=== PATIENT | male | born 1935 | race Caucasian/White ===

== ENCOUNTER → 2017-11-03 | Outpatient (CLI) | payer MEDICARE, BC | END | disposition home or self-care (01) | LOC: LAB 15:02 | PROVIDERS: ATTEND Internal Medicine | DX: D64.9 Anemia, unspecified (principal) | CPT/HCPCS: 82270 ==

== ENCOUNTER → 2018-10-14 | Outpatient (CLI) | payer MEDICARE, BC ==
[2018-10-14 12:38] LABS: Basophils # (auto) 0 uL; Basophils % (auto) 0.8 % (0.0-2.0); Eosinophils # (auto) 0 uL; Eosinophils % (auto) 0.8 % (0.0-7.0); Hematocrit 41.4 % (41.0-53.0); Hemoglobin 13.5 g/dL (13.5-17.5); Lymphocytes # (auto) 1.2 uL; Lymphocytes % (auto) 19.7 % (10.0-50.0); Mean Corpuscular Hemoglobin 32.6 pg (28.0-32.0); Mean Corpuscular Hgb Conc. 32.6 g/dL (32.0-36.0); Monocytes # (auto) 0.5 uL; Monocytes % (auto) 8.3 % (0.0-12.0); Neutrophils # (auto) 4.3 uL; Neutrophils % (auto) 70.4 % (37.0-80.0); Nucleated Red Blood Cells % 0.2 %; Platelet Count (auto) 226 10^3/uL (140-450); Red Blood Cells 4.14 10^6/uL (4.5-5.90); Red Cell Distribution Width 16.8 % (11.8-14.3); White Blood Cell 6.1 10^3/uL (4.4-10.8)
[2018-10-14 14:02] LABS: Albumin 3.8 g/dL (3.4-5.0); Calcium 9.3 mg/dL (8.5-10.1); Potassium 4.7 mmol/L (3.5-5.1)
[2018-10-14 14:05] LABS: Bilirubin, Total 0.7 mg/dL (0.2-1.0); Total Protein 7.1 g/dL (6.4-8.2)
== END | disposition home or self-care (01) ==
LOC: LAB 12:11
PROVIDERS: ATTEND Internal Medicine
DX: I10 Essential (primary) hypertension (principal); R79.89 Other specified abnormal findings of blood chemistry
CPT/HCPCS: 36415; 80053; 82607; 83540; 83615; 85025

== ENCOUNTER → 2019-09-02 | Outpatient (CLI) | payer MEDICARE, BC ==
[~2019-09-02] MED LIST: ATOR40TA52 PO; BENA20TA14 PO; DILT-29 PO; TAMS0.4C36 PO; WARF10TA PO
[2019-09-02 13:21] LABS: Basophils # (auto) 0.1 10 ^3/uL (0-0.2); Basophils % (auto) 0.9 % (0.0-2.0); Eosinophils # (auto) 0.1 10 ^3/uL (0-0.8); Eosinophils % (auto) 0.8 % (0.0-7.0); Hematocrit 36.8 % (41.0-53.0); Hemoglobin 12.5 g/dL (13.5-17.5); Lymphocytes # (auto) 1.3 10 ^3/uL (0.4-5.4); Mean Corpuscular Hemoglobin 33.6 pg (28.0-32.0); Mean Corpuscular Hgb Conc. 33.8 g/dL (32.0-36.0); Mean Corpuscular Volume 99.1 fL (80.0-100.0); Monocytes # (auto) 0.4 10 ^3/uL (0-1.3); Monocytes % (auto) 5.1 % (0.0-12.0); Neutrophils # (auto) 5.4 10 ^3/uL (1.6-8.6); Neutrophils % (auto) 75.2 % (37.0-80.0); Nucleated Red Blood Cells % 0.2 %; Platelet Count (auto) 221 10^3/uL (140-450); Red Blood Cells 3.71 10^6/uL (4.5-5.90); Red Cell Distribution Width 17.3 % (11.8-14.3); White Blood Cell 7.2 10^3/uL (4.4-10.8)
[2019-09-02 13:25] LABS: Urine Bacteria NONE SEEN /hpf (None Seen); Urine Blood Negative /uL (Negative); Urine Hyaline Cast FEW /lpf (0 - 2); Urine Mucus FEW (None Seen); Urine Specific Gravity 1.015 (1.001-1.035); Urine WBC 1 /hpf (0 - 3)
[2019-09-02 13:38] LABS: INR 3.31 (0.9-1.15)
[2019-09-02 14:06] LABS: Free T4 (Free Thyroxine) 1.42 ng/dL (0.89-1.76)
[2019-09-02 14:20] LABS: Albumin 3.6 g/dL (3.4-5.0); Calcium 8.9 mg/dL (8.5-10.1); Potassium 4.8 mmol/L (3.5-5.1)
[2019-09-02 14:26] LABS: BUN/Creatinine Ratio 20.7; Bilirubin, Total 0.7 mg/dL (0.2-1.0); CRP High Sensitivity 0.12 mg/dL (< 0.3); Total Protein 6.9 g/dL (6.4-8.2)
== END | disposition home or self-care (01) ==
LOC: LAB 12:52
PROVIDERS: ATTEND Internal Medicine
DX: E11.9 Type 2 diabetes mellitus without complications (principal); I48.91 Unspecified atrial fibrillation; I10 Essential (primary) hypertension; D64.9 Anemia, unspecified; R53.83 Other fatigue
CPT/HCPCS: 36415; 80053; 81001; 82550; 82607; 83540; 83615; 83735; 84439; 84443; 85025; 85610; 85652; 86141

== ENCOUNTER 2019-10-30 12:52 | Inpatient (IN) | payer MEDICARE, BC ==
[~2019-10-30] VITALS: Ht 190.5 cm; Wt 119.0 kg
[2019-10-30 13:28] LABS: Urine Bacteria NONE SEEN /hpf (None Seen); Urine Blood 3+ /uL (Negative); Urine Mucus FEW (None Seen); Urine Specific Gravity 1.018 (1.001-1.035); Urine WBC 21 /hpf (0 - 3)
[2019-10-30 14:05] LABS: Basophils # (auto) 0 10 ^3/uL (0-0.2); Basophils % (auto) 0.7 % (0.0-2.0); Eosinophils # (auto) 0 10 ^3/uL (0-0.8); Eosinophils % (auto) 0.7 % (0.0-7.0); Hematocrit 34.9 % (41.0-53.0); Hemoglobin 11.5 g/dL (13.5-17.5); Lymphocytes # (auto) 1.1 10 ^3/uL (0.4-5.4); Lymphocytes % (auto) 22.4 % (10.0-50.0); Mean Corpuscular Hgb Conc. 32.9 g/dL (32.0-36.0); Mean Corpuscular Volume 100.3 fL (80.0-100.0); Monocytes # (auto) 0.3 10 ^3/uL (0-1.3); Monocytes % (auto) 6.5 % (0.0-12.0); Neutrophils # (auto) 3.3 10 ^3/uL (1.6-8.6); Neutrophils % (auto) 69.7 % (37.0-80.0); Nucleated Red Blood Cells % 0.2 %; Platelet Count (auto) 172 10^3/uL (140-450); Red Blood Cells 3.48 10^6/uL (4.5-5.90); Red Cell Distribution Width 17.3 % (11.8-14.3); White Blood Cell 4.8 10^3/uL (4.4-10.8)
[2019-10-30 14:18] LABS: Calcium 8.4 mg/dL (8.5-10.1); Chloride 110 mmol/L (98-107); Potassium 3.9 mmol/L (3.5-5.1); Sodium 138 mmol/L (136-145)
[2019-10-30 14:26] LABS: Alanine Aminotransferase 17 U/L (16-61); Albumin 3.3 g/dL (3.4-5.0); Alkaline Phosphatase 84 U/L (45-117); Anion Gap 5 (5-15); Aspartate Aminotransferase 15 U/L (15-37); BUN/Creatinine Ratio 19.7; Bilirubin, Total 0.6 mg/dL (0.2-1.0); Blood Urea Nitrogen 14 mg/dL (7-18); Carbon Dioxide 23 mmol/L (21-32); GFR African American 136 mL/min; GFR Non-African American 112 mL/min; Glucose 94 mg/dL (74-106); Total Protein 6.3 g/dL (6.4-8.2)
[2019-10-30 14:28] LABS: INR 4.34 (0.9-1.15)
[2019-10-30] MEDS ORDERED: phytonadione 10 MG in SODIUM CHL 0.9% 50 ML IV ONE (14:45)
[2019-10-30] MEDS ORDERED: traMADol HCL 50 MG TAB PO PRN (15:00)
[2019-10-30] MEDS ORDERED: NITROGLYCERIN 0.4 MG SL TAB SL PRN (15:00)
[2019-10-30] MEDS ORDERED: MORPHINE SULF INJ 2 MG/ML SYRINGE 1ML IV PRN ×2 (15:00)
[2019-10-30] MEDS ORDERED: cefTRIAXone 1GM/50ML D5W 50 ML IV ONE (15:00)
[2019-10-30] MEDS ORDERED: ONDANSETRON HCL 4 MG/2 ML VIAL IV PRN (15:00)
[2019-10-30] MEDS ORDERED: ACETAMINOPHEN 500 MG TAB PO PRN (15:00)
[2019-10-30] MEDS: SODIUM CHLORIDE 0.9% 1,000 ML IV SCH ×2 (15:49→21:23)
[2019-10-30 18:09] VITALS: BP 144/57
[2019-10-30] MEDS ORDERED: WARF10TA PO (18:34)
[2019-10-30] MEDS ORDERED: DILT1CAP77 PO (18:34)
[2019-10-30] MEDS ORDERED: BENA20TA14 PO (18:34)
[2019-10-30] MEDS ORDERED: TAMS0.4C36 PO (18:34)
[2019-10-30] MEDS ORDERED: ATOR40TA52 PO (18:34)
[2019-10-30 20:12] LABS: Hematocrit 35.2 % (41.0-53.0); Hemoglobin 11.5 g/dL (13.5-17.5)
[2019-10-30 21:58] VITALS: BP 143/70
[2019-10-30] MEDS ORDERED: FAMOTIDINE 20 MG TAB PO SCH (22:00)
[2019-10-31 02:17] LABS: Hematocrit 31.9 % (41.0-53.0); Hemoglobin 10.6 g/dL (13.5-17.5)
[2019-10-31 04:51] VITALS: BP 122/51
[2019-10-31 05:53] LABS: Hematocrit 32.5 % (41.0-53.0); Hemoglobin 10.8 g/dL (13.5-17.5)
[2019-10-31 06:05] LABS: INR 1.52 (0.9-1.15); Partial Thromboplastin Time 31.4 sec (23.64-32.05)
[2019-10-31 08:00] VITALS: BP 149/78
[2019-10-31 09:00] VITALS: BP 149/78
[2019-10-31] MEDS ORDERED: cefTRIAXone 1GM/50ML D5W 50 ML IV SCH (09:00)
[2019-10-31] MEDS ORDERED: MANNITOL FTV 25% 12.5 GM/50 ML 50 ML IV ONE ×2 (09:30)
[2019-10-31 13:46] VITALS: BP 149/78
== END 2019-10-31 14:35 | disposition home or self-care (01) | DRG 815 ==
LOC: ER 12:52 → TELE 12:53 → TELE-CENTR 17:34
PROVIDERS: ADMIT Internal Medicine; ATTEND Internal Medicine
DX: D68.59 Other primary thrombophilia (principal); N20.2 Calculus of kidney with calculus of ureter; D68.9 Coagulation defect, unspecified; I11.9 Hypertensive heart disease without heart failure; I25.10 Atherosclerotic heart disease of native coronary artery without angina pectoris; I48.91 Unspecified atrial fibrillation; Z79.01 Long term (current) use of anticoagulants; Z82.49 Family history of ischemic heart disease and other diseases of the circulatory system; Z85.46 Personal history of malignant neoplasm of prostate; Z87.442 Personal history of urinary calculi; Z95.0 Presence of cardiac pacemaker; Z95.2 Presence of prosthetic heart valve; Z88.6 Allergy status to analgesic agent
CPT/HCPCS: 36415; 71045; 74176; 80053; 81001; 83735; 84484; 85014; 85018; 85025; 85610; 85730; 87081; 87086; 93005; 96365; 96368; G0378; J0696; J3430

== ENCOUNTER → 2019-12-30 | Outpatient (CLI) | payer MEDICARE, BC | END | disposition home or self-care (01) | LOC: XYW 07:42 | PROVIDERS: ATTEND Internal Medicine | DX: I08.3 Combined rheumatic disorders of mitral, aortic and tricuspid valves (principal); I48.91 Unspecified atrial fibrillation | CPT/HCPCS: 93306 ==

== ENCOUNTER → 2020-02-11 | Outpatient (CLI) | payer MEDICARE, BC ==
[2020-02-11 08:43] LABS: Basophils # (auto) 0 10 ^3/uL (0-0.2); Basophils % (auto) 0.6 % (0.0-2.0); Eosinophils # (auto) 0 10 ^3/uL (0-0.8); Hematocrit 37.1 % (41.0-53.0); Hemoglobin 12.5 g/dL (13.5-17.5); Lymphocytes # (auto) 1.2 10 ^3/uL (0.4-5.4); Lymphocytes % (auto) 27.9 % (10.0-50.0); Mean Corpuscular Hemoglobin 33.9 pg (28.0-32.0); Mean Corpuscular Hgb Conc. 33.7 g/dL (32.0-36.0); Mean Corpuscular Volume 100.6 fL (80.0-100.0); Monocytes # (auto) 0.2 10 ^3/uL (0-1.3); Monocytes % (auto) 5.6 % (0.0-12.0); Neutrophils # (auto) 2.8 10 ^3/uL (1.6-8.6); Neutrophils % (auto) 64.9 % (37.0-80.0); Nucleated Red Blood Cells % 0.2 %; Platelet Count (auto) 200 10^3/uL (140-450); Red Blood Cells 3.69 10^6/uL (4.5-5.90); Red Cell Distribution Width 17.1 % (11.8-14.3); White Blood Cell 4.3 10^3/uL (4.4-10.8)
[2020-02-11 08:48] LABS: Urine Bacteria NONE SEEN /hpf (None Seen); Urine Blood Negative /uL (Negative); Urine Specific Gravity 1.011 (1.001-1.035); Urine WBC 1 /hpf (0 - 3)
[2020-02-11 09:48] LABS: Potassium 4.2 mmol/L (3.5-5.1)
[2020-02-11 09:59] LABS: Albumin 3.4 g/dL (3.4-5.0); BUN/Creatinine Ratio 14.7; Bilirubin, Total 0.7 mg/dL (0.2-1.0); Calcium 8.9 mg/dL (8.5-10.1); Free T4 (Free Thyroxine) 0.98 ng/dL (0.89-1.76); Total Protein 6.2 g/dL (6.4-8.2)
== END | disposition home or self-care (01) ==
LOC: LAB 08:15
PROVIDERS: ATTEND Internal Medicine
DX: E11.9 Type 2 diabetes mellitus without complications (principal); I50.9 Heart failure, unspecified; Z95.2 Presence of prosthetic heart valve
CPT/HCPCS: 36415; 80053; 80061; 81001; 82043; 82607; 83036; 83880; 84439; 84443; 85025; 85652

== ENCOUNTER → 2020-02-23 | Outpatient (CLI) | payer MEDICARE, BC ==
[~2020-02-23] VITALS: Ht 190.5 cm; Wt 108.9 kg
[~2020-02-23] MED LIST changes: +ADENOSINE 90 MG/30 ML INJ IV ONE; +ADENOSINE 91 MG in GIVE UN-DILUTED 0 ML IV ONE
== END | disposition home or self-care (01) ==
LOC: Rad HDHVI 13:25
PROVIDERS: ATTEND Internal Medicine Cardiovascular Disease
DX: I25.10 Atherosclerotic heart disease of native coronary artery without angina pectoris (principal); I48.91 Unspecified atrial fibrillation; I10 Essential (primary) hypertension; E78.00 Pure hypercholesterolemia, unspecified; R06.02 Shortness of breath; Z95.0 Presence of cardiac pacemaker; Z95.2 Presence of prosthetic heart valve; Z82.49 Family history of ischemic heart disease and other diseases of the circulatory system
CPT/HCPCS: 78452; 93005; 96374; 96375; A9500; J0153

== ENCOUNTER → 2020-02-29 | Outpatient (CLI) | payer MEDICARE, BC ==
[~2020-02-29] MED LIST changes: -ADENOSINE 90 MG/30 ML INJ IV ONE; -ADENOSINE 91 MG in GIVE UN-DILUTED 0 ML IV ONE
== END | disposition home or self-care (01) ==
LOC: Rad HDHVI 10:18
PROVIDERS: ATTEND Internal Medicine Cardiovascular Disease
DX: I48.91 Unspecified atrial fibrillation (principal); R06.02 Shortness of breath
CPT/HCPCS: 93306

== ENCOUNTER 2020-04-03 14:46 | Inpatient (IN) | payer MEDICARE, BC ==
[~2020-04-03] VITALS: Ht 190.5 cm; Wt 108.5 kg
[2020-04-03 15:22] LABS: Basophils # (auto) 0 10 ^3/uL (0-0.2); Basophils % (auto) 0.5 % (0.0-2.0); Eosinophils # (auto) 0 10 ^3/uL (0-0.8); Eosinophils % (auto) 0.3 % (0.0-7.0); Hematocrit 37.7 % (41.0-53.0); Hemoglobin 12.5 g/dL (13.5-17.5); Lymphocytes # (auto) 0.8 10 ^3/uL (0.4-5.4); Lymphocytes % (auto) 8.2 % (10.0-50.0); Mean Corpuscular Hemoglobin 33.5 pg (28.0-32.0); Mean Corpuscular Hgb Conc. 33.1 g/dL (32.0-36.0); Mean Corpuscular Volume 101.2 fL (80.0-100.0); Monocytes # (auto) 0.4 10 ^3/uL (0-1.3); Monocytes % (auto) 4.5 % (0.0-12.0); Neutrophils # (auto) 8.4 10 ^3/uL (1.6-8.6); Neutrophils % (auto) 86.5 % (37.0-80.0); Platelet Count (auto) 219 10^3/uL (140-450); Red Blood Cells 3.72 10^6/uL (4.5-5.90); Red Cell Distribution Width 16.5 % (11.8-14.3); White Blood Cell 9.7 10^3/uL (4.4-10.8)
[2020-04-03 15:47] LABS: Albumin 3.4 g/dL (3.4-5.0); Anion Gap 4 (5-15); Blood Urea Nitrogen 15 mg/dL (7-18); Calcium 8.9 mg/dL (8.5-10.1); Carbon Dioxide 27 mmol/L (21-32); Chloride 107 mmol/L (98-107); Glucose 127 mg/dL (74-106); Potassium 3.9 mmol/L (3.5-5.1); Sodium 138 mmol/L (136-145)
[2020-04-03 15:54] LABS: Alanine Aminotransferase 17 U/L (16-61); Alkaline Phosphatase 99 U/L (45-117); Aspartate Aminotransferase 14 U/L (15-37); BUN/Creatinine Ratio 18.8; Bilirubin, Total 1.1 mg/dL (0.2-1.0); GFR African American 118 mL/min; GFR Non-African American 98 mL/min; Total Protein 6.6 g/dL (6.4-8.2)
[2020-04-03] MEDS ORDERED: PANTOPRAZOLE 40 MG/10 ML VIAL INJ IV ONE (17:00)
[2020-04-03] MEDS ORDERED: ONDANSETRON HCL 4 MG/2 ML VIAL IV ONE ×2 (17:30→17:45)
[2020-04-03] MEDS ORDERED: MORPHINE SULFATE 4 MG/ML SYR/VIAL IV ONE (17:30)
[2020-04-03] MEDS ORDERED: cefTRIAXone 1GM/50ML D5W 50 ML IV ONE (17:45)
[2020-04-03] MEDS ORDERED: metroNIDAZOLE 500MG/100ML 100 ML IV ONE (17:45)
[2020-04-03] MEDS ORDERED: NITROGLYCERIN 0.4 MG SL TAB SL PRN (17:45)
[2020-04-03] MEDS ORDERED: MORPHINE SULF INJ 2 MG/ML SYRINGE 1ML IV PRN ×2 (17:45)
[2020-04-03 19:34] LABS: INR 1.87 (0.9-1.15); Partial Thromboplastin Time 33.3 sec (23.0-31.2)
[2020-04-03] MEDS: FAMOTIDINE (10MG/ML) 2ML VL IV SCH (21:56)
[2020-04-03] MEDS: ONDANSETRON HCL 4 MG/2 ML VIAL IV PRN (21:56)
[2020-04-04] MEDS ORDERED: ONDANSETRON HCL 4 MG/2 ML VIAL IV PRN (00:45)
[2020-04-04] MEDS ORDERED: ACETAMINOPHEN 325 MG TAB PO PRN (00:45)
[2020-04-04] MEDS ORDERED: LORazepam 0.5 MG TAB PO PRN (00:45)
[2020-04-04] MEDS ORDERED: ALUM & MAG HYDROX-SIMETH LIQ(MAALOX) 30 ML PO PRN (00:45)
[2020-04-04] MEDS ORDERED: DOCUSATE SOD 100 MG CAP PO PRN (00:45)
[2020-04-04] MEDS ORDERED: NITROGLYCERIN 0.4 MG SL TAB SL PRN (00:45)
[2020-04-04] MEDS ORDERED: HYDROcodone-ACET 5/325MG TAB PO PRN (00:45)
[2020-04-04] MEDS ORDERED: MORPHINE SULF INJ 2 MG/ML SYRINGE 1ML IV PRN ×2 (00:45)
[2020-04-04] MEDS ORDERED: hydrALAZINE HCL 20 MG/ML VL IV PRN (01:00)
[2020-04-04 02:36] LABS: Cholesterol 118 mg/dL (< 200); HDL Cholesterol 51 mg/dL (40-59); LDL Cholesterol 59 mg/dL (< 100); Triglycerides 104 mg/dL (< 150)
--- NOTE | 2020-04-04 02:56 | NUR ---
Telemetry admit from ER [facility] Angulo admitted to Telemetry unit after SBAR received. Patient oriented to ROSAS RODRIGUEZ, primary RN, unit, room, bed, and unit policies regarding patient care and visiting hours. Patient now on continuous telemetry monitoring, tele box #[id number] and telemetry reading on arrival to unit is Paced. Patient placed on bedside oxygen, weighed by bedscale and encouraged to call if they need something. Call light explained and placed within reach. All questions and concerns addressed, patient verbalized understanding.
[2020-04-04] MEDS: SOD CHL 0.45% 1,000 ML IV SCH ×2 (03:43→17:46)
[2020-04-04 05:00] VITALS: BP 132/55
[2020-04-04] MEDS: metroNIDAZOLE 500MG/100ML 100 ML IV SCH ×3 (06:01→23:22)
--- NOTE | 2020-04-04 07:08 | NUR ---
ASSUMED CARE OF PATIENT RESTING WITH EYES CLOSED IN BED. RESPIRATIONS EVEN AND UNLABORED AT THIS TIME. SIDE RAILS UP X 2, HOB ELEVATED AT LEAST 30 DEGREES, CALL LIGHT IS WITHIN REACH AND BED LOCKED IN LOWEST POSITION.
--- NOTE | 2020-04-04 08:40 | NUR ---
UA COLLECTED AND SENT TO LAB
[2020-04-04] MEDS: ONDANSETRON HCL 4 MG/2 ML VIAL IV PRN (08:48)
[2020-04-04 09:01] VITALS: BP 111/51
[2020-04-04 09:13] LABS: Urine Bacteria NONE SEEN /hpf (None Seen); Urine Blood Negative /uL (Negative); Urine Hyaline Cast FEW /lpf (0 - 2); Urine Specific Gravity 1.023 (1.001-1.035); Urine WBC <1 /hpf (0 - 3)
[2020-04-04] MEDS: FOLIC ACID 1 MG TAB PO SCH (09:13)
[2020-04-04] MEDS: MULTIPLE VITAMINS W/ MINERALS TAB PO SCH (09:13)
[2020-04-04] MEDS: cefTRIAXone 1GM/50ML D5W 50 ML IV SCH (09:13)
[2020-04-04] MEDS: BENAZEPRIL HCL 10 MG TAB PO SCH (09:14)
[2020-04-04 09:15] LABS: INR 2.27 (0.9-1.15)
[2020-04-04] MEDS: FAMOTIDINE (10MG/ML) 2ML VL IV SCH ×2 (09:15→23:22)
[2020-04-04] MEDS: dilTIAZem 120MG ER CAP PO SCH (09:15)
[2020-04-04 09:32] LABS: Alcohol, Urine < 3.0 mg/dL (0-10); Barbiturate Scree,Urine NEGATIVE (NEGATIVE); Benzodiazephine Screen, Urine NEGATIVE (NEGATIVE); Cannabinoid Screen, Urine NEGATIVE (NEGATIVE); Cocaine Screen, Urine NEGATIVE (NEGATIVE); Opiate Scree,Urine POSITIVE (NEGATIVE); Phencyclidine Screen, Urine NEGATIVE (NEGATIVE)
[2020-04-04 09:39] LABS: Amphetamine Screen, Urine NEGATIVE (NEGATIVE)
--- NOTE | 2020-04-04 12:17 | NUR ---
Nutrition Consult for food drug interaction Pt is with Metronidazole. Spoke to pt about the interaction with drug and alcohol. Advised pt to not consume alcohol with medication if pt is d/c'd with medication prescribed. Pt acknowledged understanding and reported not drinking alcohol
[2020-04-04 13:00] VITALS: BP 120/55
--- NOTE | 2020-04-04 13:00 | NUR ---
MD ROUNDS WITH DR KNUTSON AT BEDSIDE. NO NEW ORDERS AT THIS TIME. CONTINUE CARE.
--- NOTE | 2020-04-04 13:15 | NUR ---
PATIENT TAKEN DOWN FOR HIDA SCAN
--- NOTE | 2020-04-04 15:39 | NUR ---
PATIENT RETURNED FROM HIDA SCAN. NO SIGNS OR SYMPTOMS OF DISTRESS AT THIS TIME. CONTINUE CARE.
[2020-04-04 16:39] VITALS: BP 112/44
[2020-04-04] MEDS: TAMSULOSIN HYDROCHLORIDE 0.4 MG CAP PO SCH (17:46)
--- NOTE | 2020-04-04 19:29 | NUR ---
ENDORSED CARE TO NOC SHIFT RN
[2020-04-04 22:00] VITALS: BP 110/48
[2020-04-04] MEDS: ATORVASTATIN 20 MG TAB PO SCH (23:22)
[2020-04-05 05:08] VITALS: BP 132/50
[2020-04-05] MEDS: metroNIDAZOLE 500MG/100ML 100 ML IV SCH ×3 (05:12→21:46)
--- NOTE | 2020-04-05 05:42 | NUR ---
PT signed consents for EGD. Has questions regarding procedure. Asking for clarification from MD before procedure.
--- NOTE | 2020-04-05 07:00 | NUR ---
OPENING SHIFT NOTE RECEIVED REPORT ON THE PATIENT. AWAKE LYING IN BED. PATIENTS SHOWS NO SIGNS OF DISTRESS AT THIS TIME. DISCUSSED THE PLAN OF CARE WITH THE PATIENT. BED IN LOWEST POSITION, SIDE RAILS UP X2, AND THE CALL LIGHT IS WITHIN REACH.
[2020-04-05 07:39] LABS: Basophils # (auto) 0 10 ^3/uL (0-0.2); Eosinophils # (auto) 0.1 10 ^3/uL (0-0.8); Hematocrit 30.8 % (41.0-53.0); Lymphocytes % (auto) 17.6 % (10.0-50.0); Monocytes # (auto) 0.3 10 ^3/uL (0-1.3)
[2020-04-05 07:42] LABS: Basophils % (auto) 0.9 % (0.0-2.0); Eosinophils % (auto) 1.7 % (0.0-7.0); Hemoglobin 10.3 g/dL (13.5-17.5); Lymphocytes # (auto) 0.9 10 ^3/uL (0.4-5.4); Mean Corpuscular Hgb Conc. 33.6 g/dL (32.0-36.0); Mean Corpuscular Volume 101.4 fL (80.0-100.0); Monocytes % (auto) 6.9 % (0.0-12.0); Neutrophils # (auto) 3.6 10 ^3/uL (1.6-8.6); Neutrophils % (auto) 72.9 % (37.0-80.0); Nucleated Red Blood Cells % 0.2 %; Platelet Count (auto) 163 10^3/uL (140-450); Red Blood Cells 3.04 10^6/uL (4.5-5.90); White Blood Cell 4.9 10^3/uL (4.4-10.8)
[2020-04-05 07:53] LABS: INR 1.94 (0.9-1.15)
[2020-04-05 08:11] LABS: BUN/Creatinine Ratio 19.2; Calcium 8.4 mg/dL (8.5-10.1); Potassium 4.1 mmol/L (3.5-5.1)
[2020-04-05] MEDS ORDERED: FLUMAZENIL 0.1 MG/ML INJ 10ML MDV IV ONE (08:53)
[2020-04-05] MEDS ORDERED: NALOXONE HCL 0.4 MG/ML VIAL ONE (08:53)
[2020-04-05] MEDS ORDERED: SODIUM CHLORIDE LOCK 10 ML ONE (08:53)
[2020-04-05] MEDS ORDERED: LIDOCAINE VISCOUS 2% 15ML UD ONE (08:53)
[2020-04-05] MEDS ORDERED: diphenhdrAMINE HCL 50 MG/1 ML VL ONE (08:59)
[2020-04-05 09:00] VITALS: BP 127/50
--- NOTE | 2020-04-05 09:06 | NUR ---
DR KNUTSON AT BEDSIDE. NEW ORDERS RECEIVED.
[2020-04-05] MEDS: cefTRIAXone 1GM/50ML D5W 50 ML IV SCH (09:53)
[2020-04-05] MEDS: FAMOTIDINE (10MG/ML) 2ML VL IV SCH ×2 (09:54→21:45)
[2020-04-05] MEDS: BENAZEPRIL HCL 10 MG TAB PO SCH (09:54)
[2020-04-05] MEDS: FOLIC ACID 1 MG TAB PO SCH (09:54)
[2020-04-05] MEDS: dilTIAZem 120MG ER CAP PO SCH (09:54)
[2020-04-05] MEDS: MULTIPLE VITAMINS W/ MINERALS TAB PO SCH (09:55)
[2020-04-05] MEDS: SOD CHL 0.45% 1,000 ML IV SCH (09:55)
[2020-04-05] MEDS ORDERED: LACTULOSE 20Gm/30ML SOLN PO ONE (10:00)
--- NOTE | 2020-04-05 12:13 | NUR ---
PAGED DR YAN REGARDING CARDIO CLEARANCE FOR THE PROCEDURE TOMORROW. AWAITING A CALL BACK.
--- NOTE | 2020-04-05 12:14 | NUR ---
DR YAN CALLED BACK AND STATED THAT THE PATIENT WAS CLEAR FOR SURGERY. HE WILL PUT A PROGRESS NOTE.
[2020-04-05 12:33] VITALS: BP 113/50
--- NOTE | 2020-04-05 14:43 | NUR ---
PATIENT DOWN TO OR. PATIENT SHOWS NO SIGNS OF DISTRESS AT THIS TIME.
[2020-04-05] MEDS: fentaNYL CITRATE 100 MCG/2 ML VL ONE ×2 (16:14→16:17)
[2020-04-05] MEDS: MIDAZOLAM HCL 5 MG/ML-1ML VIAL ONE ×2 (16:14→16:17)
[2020-04-05] MEDS: TAMSULOSIN HYDROCHLORIDE 0.4 MG CAP PO SCH (17:23)
[2020-04-05] MEDS: SUCRALFATE 1 GM/10 ML ORAL SUSP PO SCH ×2 (17:23→21:45)
--- NOTE | 2020-04-05 19:15 | NUR ---
Opening Shift Note Assumed care of patient from day shift RN patient awake, alert and oriented x4. No S/S of distress/SOB or pain. Instructed on POC and to call for assist PRN, safety measures in place bed in lowest position call light with in reach side rails up x2. will continue to monitor for changes Q1hr and PRN.
[2020-04-05] MEDS: ATORVASTATIN 20 MG TAB PO SCH (21:48)
[2020-04-05 22:00] VITALS: BP 113/45
[2020-04-06] MEDS: SOD CHL 0.45% 1,000 ML IV SCH ×2 (02:45→17:17)
[2020-04-06 05:17] VITALS: BP 96/58
[2020-04-06] MEDS: metroNIDAZOLE 500MG/100ML 100 ML IV SCH ×3 (05:56→21:52)
[2020-04-06] MEDS: SUCRALFATE 1 GM/10 ML ORAL SUSP PO SCH ×4 (05:56→21:52)
[2020-04-06 09:00] VITALS: BP 127/62
[2020-04-06] MEDS: FAMOTIDINE (10MG/ML) 2ML VL IV SCH ×2 (10:04→21:52)
[2020-04-06] MEDS: FOLIC ACID 1 MG TAB PO SCH (10:04)
[2020-04-06] MEDS: cefTRIAXone 1GM/50ML D5W 50 ML IV SCH (10:04)
[2020-04-06] MEDS: BENAZEPRIL HCL 10 MG TAB PO SCH (10:05)
[2020-04-06] MEDS: dilTIAZem 120MG ER CAP PO SCH (10:05)
[2020-04-06] MEDS: MULTIPLE VITAMINS W/ MINERALS TAB PO SCH (10:05)
[2020-04-06 13:00] VITALS: BP 120/45
[2020-04-06] MEDS ORDERED: GOLYTELY 4L KIT PO ONE (14:00)
--- NOTE | 2020-04-06 15:21 | NUR ---
Assessment Patient is a 85 year old male, who is alert and oriented. Patient cognitive abilities are intact. Patient stated that he can do all ADL's and ambulate independently. Patient stated that he lives with his and he is retired, patient receives social security and pension as income. Patient stated that he will return home post discharge. Patient stated that his son will provide transportation post discharge. Patient states that his (Brittani [phone]) is his support system. Patient was receptive to receive Advance Directive forms. Discharge planning: Patient will return home post discharge and follow up with his PCP post discharge. SW will provide Advance Directive forms to patient. Patient has no post discharge needs to identify at this moment. Addendum: 04/06/20 at 1528 by PETR ASHFORD Amended: Links added.
[2020-04-06 17:00] VITALS: BP 118/63
[2020-04-06] MEDS: TAMSULOSIN HYDROCHLORIDE 0.4 MG CAP PO SCH (17:17)
--- NOTE | 2020-04-06 19:15 | NUR ---
Opening Shift Note Assumed care of patient from day shift RN, patient awake, alert and oriented x4. No S/S of distress/SOB or pain. Instructed on POC and to call for assist PRN, safety measures in place call light in reach, bed in lowest position, side rails up x2. will continue to monitor for changes Q1hr and PRN.
[2020-04-06] MEDS: ATORVASTATIN 20 MG TAB PO SCH (21:53)
[2020-04-06 22:00] VITALS: BP 140/50
[2020-04-07 05:00] VITALS: BP 143/45
[2020-04-07] MEDS: metroNIDAZOLE 500MG/100ML 100 ML IV SCH ×3 (05:42→21:30)
[2020-04-07] MEDS ORDERED: MAGNESIUM CITRATE SOLUTION 300 ML BTL PO ONE ×2 (06:00→09:15)
[2020-04-07] MEDS: SUCRALFATE 1 GM/10 ML ORAL SUSP PO SCH ×4 (06:12→21:30)
--- NOTE | 2020-04-07 07:30 | NUR ---
Opening Shift Note Assumed care of patient. He is awake, alert and oriented x 4. No S/S of distress/SOB or pain. Respirations are even and non labored on room air. Bed is in the lowest and locked position with side rails up x 2 and call light within reach. Instructed on POC and to call for assist PRN, will continue to monitor for changes Q1hr and PRN.
[2020-04-07] MEDS ORDERED: SODIUM CHLORIDE LOCK 10 ML ONE (08:38)
[2020-04-07] MEDS ORDERED: diphenhdrAMINE HCL 50 MG/1 ML VL ONE (08:39)
--- NOTE | 2020-04-07 08:42 | NUR ---
Marti Reyes Patient had required go lytely and mag citrate. Bowels are not clear, dr clark.
[2020-04-07] MEDS: cefTRIAXone 1GM/50ML D5W 50 ML IV SCH (08:44)
[2020-04-07 09:00] VITALS: BP 149/74
--- NOTE | 2020-04-07 09:02 | NUR ---
Return call from Carlos Reyes New orders received.
--- NOTE | 2020-04-07 11:22 | NUR ---
Patient down to pre-op for colonoscopy
--- NOTE | 2020-04-07 11:52 | NUR ---
Nutrition Assessment Note please see attached link for complete assessment [employer] needs ABW 97 [id number] kcals (23-25kcal/kgABW), Est Protein needs: 97-106 gms/day (1.0-1.1 gm/kgABW). Will continue to monitor and reassess prn. Addendum: 04/07/20 at [address] Amended: Links added.
[2020-04-07] MEDS: fentaNYL CITRATE 100 MCG/2 ML VL ONE ×3 (11:54→12:02)
[2020-04-07] MEDS: MIDAZOLAM HCL 5 MG/ML-1ML VIAL ONE ×4 (11:54→12:07)
--- NOTE | 2020-04-07 13:07 | NUR ---
Call from OR Received report from Tona PILLAI. Patient to return back to the floor.
--- NOTE | 2020-04-07 13:26 | NUR ---
Patient returned from OR
[2020-04-07] MEDS: SOD CHL 0.45% 1,000 ML IV SCH (13:30)
[2020-04-07] MEDS: dilTIAZem 120MG ER CAP PO SCH (13:58)
[2020-04-07] MEDS: MULTIPLE VITAMINS W/ MINERALS TAB PO SCH (13:58)
[2020-04-07] MEDS: FOLIC ACID 1 MG TAB PO SCH (13:59)
[2020-04-07] MEDS: FAMOTIDINE (10MG/ML) 2ML VL IV SCH ×2 (13:59→21:30)
[2020-04-07] MEDS: BENAZEPRIL HCL 10 MG TAB PO SCH (13:59)
--- NOTE | 2020-04-07 15:17 | NUR ---
Dr. Villeda at bedside Discussed POC with patient and answered all questions. New orders received.
[2020-04-07 17:00] VITALS: BP 129/63
[2020-04-07] MEDS: TAMSULOSIN HYDROCHLORIDE 0.4 MG CAP PO SCH (17:44)
[2020-04-07] MEDS: ATORVASTATIN 20 MG TAB PO SCH (21:30)
[2020-04-07] MEDS: ENOXAPARIN SOD 60 MG/0.6 ML SYRINGE SC SCH (21:30)
[2020-04-07 22:00] VITALS: BP 141/66
--- NOTE | 2020-04-07 22:20 | NUR ---
ASSUMED PATIENT CARE- NOC SHIFT RECEIVED REPORT FROM AUGUST RN. PATIENT IS ALERT AND ORIENTED X4, ANSWERS IN COMPLETE SENTENCES AND MAKES APPROPRIATE EYE CONTACT. PATIENT IS IN BED, BED IS LOCKED AT LOWEST POSITION, BED RAILS UP X2 AND HEAD OF BED IS UP >30 DEGREES. BEDSIDE TABLE WITHIN REACH, CALL LIGHT WITHIN REACH. DISCUSSED POC WITH PATIENT AND INSTRUCTED PATIENT TO CALL PRN; PATIENT VERBALIZED UNDERSTANDING. WILL CONTINUE TO MONITOR Q1H AND PRN.
[2020-04-08 05:00] VITALS: BP 129/72
[2020-04-08] MEDS: SOD CHL 0.45% 1,000 ML IV SCH (05:08)
[2020-04-08] MEDS: metroNIDAZOLE 500MG/100ML 100 ML IV SCH (06:48)
[2020-04-08] MEDS: SUCRALFATE 1 GM/10 ML ORAL SUSP PO SCH (06:48)
--- NOTE | 2020-04-08 07:29 | NUR ---
ENDORSED PATIENT CARE TO DAY SHIFT NURSE ONESIMO PILLAI PATIENT IS COMFORTABLE IN BED. NO S/SX OF DISTRESS, SOB OR PAIN.
--- NOTE | 2020-04-08 07:55 | NUR ---
Opening Shift Note Assumed care of patient, awake and alert sitting up in bed. No S/S of distress/SOB or pain. Instructed on POC and to call for assist PRN, will continue to monitor for changes Q1hr and PRN.
--- NOTE | 2020-04-08 08:15 | NUR ---
Hospitalist Rounded Dr. Henley rounded on patient.
[2020-04-08 09:00] VITALS: BP 135/58
[2020-04-08 09:27] VITALS: BP 135/58
[2020-04-08] MEDS: cefTRIAXone 1GM/50ML D5W 50 ML IV SCH (09:27)
[2020-04-08] MEDS: ENOXAPARIN SOD 60 MG/0.6 ML SYRINGE SC SCH (09:30)
[2020-04-08] MEDS: FAMOTIDINE (10MG/ML) 2ML VL IV SCH (09:30)
[2020-04-08] MEDS: FOLIC ACID 1 MG TAB PO SCH (09:30)
[2020-04-08] MEDS: BENAZEPRIL HCL 10 MG TAB PO SCH (09:30)
[2020-04-08] MEDS: MULTIPLE VITAMINS W/ MINERALS TAB PO SCH (09:30)
[2020-04-08] MEDS: dilTIAZem 120MG ER CAP PO SCH (09:31)
--- NOTE | 2020-04-08 12:21 | NUR ---
Discharge instructions given as ordered. Encourage to follow up with PMD as instructed. All questions and concerns addressed. Patient verbalized understanding. Medication reconciliation form completed and copy given to patient. IV removed with catheter intact and pressure dressing applied. Telemetry unit returned to ICU. Patient ambulated to vehicle with all personal belongings, accompanied by staff. No distress noted at time of departure.
== END 2020-04-08 12:20 | disposition home or self-care (01) | DRG 392 ==
LOC: ER 14:47 → TELE 17:48 → TELE-CENTR 04-04 02:55
PROVIDERS: ADMIT Hospitalist; ATTEND Family Medicine
PROC: 0DB88ZX Excision of Small Intestine, Via Natural or Artificial Opening Endoscopic, Diagnostic (ICD-10-PCS; 2020-04-05)
PROC: 0DB68ZX Excision of Stomach, Via Natural or Artificial Opening Endoscopic, Diagnostic (ICD-10-PCS; principal; 2020-04-05 16:08)
PROC: 0DBK8ZX Excision of Ascending Colon, Via Natural or Artificial Opening Endoscopic, Diagnostic (ICD-10-PCS; 2020-04-07)
PROC: 0DBC8ZX Excision of Ileocecal Valve, Via Natural or Artificial Opening Endoscopic, Diagnostic (ICD-10-PCS; 2020-04-07)
PROC: 0DBL8ZZ Excision of Transverse Colon, Via Natural or Artificial Opening Endoscopic (ICD-10-PCS; 2020-04-07)
DX: K21.9 Gastro-esophageal reflux disease without esophagitis (principal); D68.59 Other primary thrombophilia; D68.4 Acquired coagulation factor deficiency; I48.20 Chronic atrial fibrillation, unspecified; K63.3 Ulcer of intestine; K80.20 Calculus of gallbladder without cholecystitis without obstruction; K29.70 Gastritis, unspecified, without bleeding; K31.9 Disease of stomach and duodenum, unspecified; K29.80 Duodenitis without bleeding; K64.8 Other hemorrhoids; I25.5 Ischemic cardiomyopathy; I10 Essential (primary) hypertension; I49.5 Sick sinus syndrome; C61 Malignant neoplasm of prostate; D75.89 Other specified diseases of blood and blood-forming organs; I25.10 Atherosclerotic heart disease of native coronary artery without angina pectoris; E78.00 Pure hypercholesterolemia, unspecified; K44.9 Diaphragmatic hernia without obstruction or gangrene; N40.0 Benign prostatic hyperplasia without lower urinary tract symptoms; K57.90 Diverticulosis of intestine, part unspecified, without perforation or abscess without bleeding; Z82.49 Family history of ischemic heart disease and other diseases of the circulatory system; Z79.01 Long term (current) use of anticoagulants; Z87.19 Personal history of other diseases of the digestive system; Z87.442 Personal history of urinary calculi; Z95.0 Presence of cardiac pacemaker; Z95.2 Presence of prosthetic heart valve; Z88.5 Allergy status to narcotic agent; Z91.041 Radiographic dye allergy status
CPT/HCPCS: 36415; 43239; 45380; 71045; 74176; 76705; 78226; 80048; 80053; 80061; 80307; 81001; 83036; 84484; 85025; 85610; 85730; 87040; 87081; 87086; 93005; 96365; 96367; 96375; 96376; C9113; G0378; J0696; J2250; J2405; J3490

== ENCOUNTER 2020-06-11 08:55 | Inpatient (IN) | payer MEDICARE, BC ==
[~2020-06-11] VITALS: Ht 190.5 cm; Wt 108.2 kg
[2020-06-11] MEDS ORDERED: FAMOTIDINE (10MG/ML) 2ML VL IV ONE (10:00)
[2020-06-11 10:10] LABS: Basophils # (auto) 0 10 ^3/uL (0-0.2); Basophils % (auto) 0.3 % (0.0-2.0); Eosinophils # (auto) 0 10 ^3/uL (0-0.8); Eosinophils % (auto) 0.2 % (0.0-7.0); Hematocrit 37.8 % (41.0-53.0); Lymphocytes # (auto) 0.5 10 ^3/uL (0.4-5.4); Neutrophils # (auto) 8.5 10 ^3/uL (1.6-8.6); Red Cell Distribution Width 16.7 % (11.8-14.3); White Blood Cell 9.5 10^3/uL (4.4-10.8)
[2020-06-11 10:13] LABS: Hemoglobin 12.8 g/dL (13.5-17.5); Lymphocytes % (auto) 5.4 % (10.0-50.0); Mean Corpuscular Hemoglobin 33.9 pg (28.0-32.0); Mean Corpuscular Hgb Conc. 33.9 g/dL (32.0-36.0); Mean Corpuscular Volume 99.9 fL (80.0-100.0); Monocytes # (auto) 0.5 10 ^3/uL (0-1.3); Monocytes % (auto) 5.2 % (0.0-12.0); Neutrophils % (auto) 88.9 % (37.0-80.0); Nucleated Red Blood Cells % 0.1 %; Platelet Count (auto) 195 10^3/uL (140-450); Red Blood Cells 3.78 10^6/uL (4.5-5.90)
[2020-06-11 10:24] LABS: Chloride 107 mmol/L (98-107); Potassium 3.5 mmol/L (3.5-5.1); Sodium 140 mmol/L (136-145)
[2020-06-11 10:25] LABS: INR 1.71 (0.9-1.15); Partial Thromboplastin Time 29.1 sec (23.0-31.2)
[2020-06-11 10:26] LABS: Lactic Acid w/Reflex 2.1 mmol/L (0.4-2.0)
[2020-06-11 10:35] LABS: Alanine Aminotransferase 22 U/L (16-61); Albumin 3.5 g/dL (3.4-5.0); Alkaline Phosphatase 98 U/L (45-117); Anion Gap 5 (5-15); Aspartate Aminotransferase 21 U/L (15-37); BUN/Creatinine Ratio 19.8; Bilirubin, Total 0.9 mg/dL (0.2-1.0); Blood Urea Nitrogen 16 mg/dL (7-18); Carbon Dioxide 28 mmol/L (21-32); GFR African American 116 mL/min; GFR Non-African American 96 mL/min; Glucose 113 mg/dL (74-106); Lipase 118 U/L (73-393); Total Protein 6.8 g/dL (6.4-8.2)
[2020-06-11] MEDS ORDERED: metroNIDAZOLE 500MG/100ML 100 ML IV ONE (13:30)
[2020-06-11] MEDS ORDERED: PIPERACILLIN-TAZOB 3.375GM 100 ML IV ONE (13:30)
[2020-06-11] MEDS ORDERED: ONDANSETRON HCL 4 MG/2 ML VIAL IV PRN (14:30)
[2020-06-11] MEDS ORDERED: MORPHINE SULF INJ 2 MG/ML SYRINGE 1ML IV PRN ×2 (14:30)
[2020-06-11] MEDS ORDERED: NITROGLYCERIN 0.4 MG SL TAB SL PRN (14:30)
[2020-06-11] MEDS: D5W/SOD CHL 0.45%/KCL 20MEQ 1,000 ML IV SCH (15:22)
[2020-06-11] MEDS: ATORVASTATIN 20 MG TAB PO SCH (22:14)
[2020-06-11] MEDS: metroNIDAZOLE 500MG/100ML 100 ML IV SCH (22:14)
[2020-06-12] MEDS: D5W/SOD CHL 0.45%/KCL 20MEQ 1,000 ML IV SCH ×3 (00:47→20:33)
[2020-06-12 03:06] LABS: Urine Bacteria FEW /hpf (None Seen); Urine Blood TRACE /uL (Negative); Urine Mucus FEW (None Seen); Urine Specific Gravity 1.016 (1.001-1.035); Urine WBC 1 /hpf (0 - 3)
[2020-06-12] MEDS: metroNIDAZOLE 500MG/100ML 100 ML IV SCH ×3 (05:44→21:35)
[2020-06-12 07:30] LABS: Basophils # (auto) 0 10 ^3/uL (0-0.2); Basophils % (auto) 0.8 % (0.0-2.0); Eosinophils # (auto) 0.1 10 ^3/uL (0-0.8); Eosinophils % (auto) 1.4 % (0.0-7.0); Hematocrit 31.7 % (41.0-53.0); Lymphocytes # (auto) 1.1 10 ^3/uL (0.4-5.4); Lymphocytes % (auto) 20.5 % (10.0-50.0); Mean Corpuscular Hemoglobin 34.1 pg (28.0-32.0); Mean Corpuscular Hgb Conc. 34.6 g/dL (32.0-36.0); Mean Corpuscular Volume 98.8 fL (80.0-100.0); Monocytes # (auto) 0.4 10 ^3/uL (0-1.3); Monocytes % (auto) 6.8 % (0.0-12.0); Neutrophils # (auto) 3.7 10 ^3/uL (1.6-8.6); Neutrophils % (auto) 70.5 % (37.0-80.0); Nucleated Red Blood Cells % 0.1 %; Platelet Count (auto) 177 10^3/uL (140-450); Red Blood Cells 3.21 10^6/uL (4.5-5.90); Red Cell Distribution Width 16.4 % (11.8-14.3); White Blood Cell 5.3 10^3/uL (4.4-10.8)
[2020-06-12 07:44] LABS: BUN/Creatinine Ratio 19.7; Calcium 8.3 mg/dL (8.5-10.1); Potassium 4.2 mmol/L (3.5-5.1)
[2020-06-12] MEDS: TAMSULOSIN HYDROCHLORIDE 0.4 MG CAP PO SCH (08:36)
[2020-06-12] MEDS: cefTRIAXone 1GM/50ML D5W 50 ML IV SCH (08:36)
[2020-06-12] MEDS: dilTIAZem 120MG ER CAP PO SCH (09:45)
[2020-06-12] MEDS: BENAZEPRIL HCL 10 MG TAB PO SCH (09:46)
[2020-06-12] MEDS ORDERED: DILTIAZEM HCL PO SCH (10:00)
[2020-06-12] MEDS ORDERED: PATIENTS OWN MEDICATION (Atorvastatin Calcium 1 TAB) PO SCH (10:00)
[2020-06-12] MEDS ORDERED: PATIENTS OWN MEDICATION (Benazepril Hcl 1 TAB) PO SCH (10:00)
[2020-06-12] MEDS: ATORVASTATIN 20 MG TAB PO SCH (21:35)
[2020-06-12 22:20] VITALS: BP 115/53
[2020-06-13] MEDS ORDERED: WARF10TA20 PO (02:53)
[2020-06-13] MEDS ORDERED: DILT-29 PO (02:53)
[2020-06-13] MEDS: D5W/SOD CHL 0.45%/KCL 20MEQ 1,000 ML IV SCH (06:30)
[2020-06-13] MEDS: metroNIDAZOLE 500MG/100ML 100 ML IV SCH ×3 (07:00→22:27)
[2020-06-13 08:00] VITALS: BP 128/50
[2020-06-13] MEDS: cefTRIAXone 1GM/50ML D5W 50 ML IV SCH (08:39)
[2020-06-13] MEDS: TAMSULOSIN HYDROCHLORIDE 0.4 MG CAP PO SCH (10:13)
[2020-06-13] MEDS: dilTIAZem 120MG ER CAP PO SCH (10:13)
[2020-06-13] MEDS: BENAZEPRIL HCL 10 MG TAB PO SCH (10:14)
[2020-06-13 16:00] VITALS: BP 121/49
[2020-06-13 22:00] VITALS: BP 138/54
[2020-06-13] MEDS: ATORVASTATIN 20 MG TAB PO SCH (22:27)
[2020-06-14] MEDS: metroNIDAZOLE 500MG/100ML 100 ML IV SCH ×3 (06:25→22:46)
[2020-06-14 06:34] VITALS: BP 127/58
[2020-06-14 08:00] VITALS: BP 136/56
[2020-06-14] MEDS: cefTRIAXone 1GM/50ML D5W 50 ML IV SCH (08:32)
[2020-06-14] MEDS: BENAZEPRIL HCL 10 MG TAB PO SCH (10:18)
[2020-06-14] MEDS: TAMSULOSIN HYDROCHLORIDE 0.4 MG CAP PO SCH (10:19)
[2020-06-14] MEDS: dilTIAZem 120MG ER CAP PO SCH (10:19)
[2020-06-14] MEDS ORDERED: IOHEXOL 350 MG/ML 100ML IJ ONE (13:41)
[2020-06-14 16:00] VITALS: BP 115/59
[2020-06-14] MEDS ORDERED: predniSONE 20 MG TAB PO ONE (19:00)
[2020-06-14 22:00] VITALS: BP 145/64
[2020-06-14] MEDS: ATORVASTATIN 20 MG TAB PO SCH (22:47)
[2020-06-15] MEDS ORDERED: predniSONE 20 MG TAB PO ONE ×2 (01:00→07:00)
[2020-06-15 05:00] VITALS: BP 145/66
[2020-06-15] MEDS: metroNIDAZOLE 500MG/100ML 100 ML IV SCH ×3 (06:26→22:00)
[2020-06-15] MEDS ORDERED: diphenhdrAMINE HCL 25 MG CAP PO ONE (07:00)
[2020-06-15] MEDS ORDERED: IOHEXOL 350 MG/ML 100ML IJ ONE (07:17)
[2020-06-15 08:00] VITALS: BP 156/65
[2020-06-15] MEDS: dilTIAZem 120MG ER CAP PO SCH (10:47)
[2020-06-15] MEDS: BENAZEPRIL HCL 10 MG TAB PO SCH (10:47)
[2020-06-15] MEDS: TAMSULOSIN HYDROCHLORIDE 0.4 MG CAP PO SCH (10:47)
[2020-06-15] MEDS: cefTRIAXone 1GM/50ML D5W 50 ML IV SCH (11:19)
[2020-06-15 16:00] VITALS: BP 132/62
[2020-06-15 21:33] VITALS: BP 138/60
[2020-06-15] MEDS: ATORVASTATIN 20 MG TAB PO SCH (22:00)
[2020-06-16 05:00] VITALS: BP 146/63
[2020-06-16 05:33] LABS: INR 1.28 (0.9-1.15); Partial Thromboplastin Time 26.9 sec (23.0-31.2)
[2020-06-16] MEDS: metroNIDAZOLE 500MG/100ML 100 ML IV SCH ×3 (06:07→20:38)
[2020-06-16 08:00] VITALS: BP 144/51
[2020-06-16] MEDS: BENAZEPRIL HCL 10 MG TAB PO SCH (09:28)
[2020-06-16] MEDS: TAMSULOSIN HYDROCHLORIDE 0.4 MG CAP PO SCH (09:28)
[2020-06-16] MEDS: dilTIAZem 120MG ER CAP PO SCH (09:28)
[2020-06-16] MEDS: cefTRIAXone 1GM/50ML D5W 50 ML IV SCH (09:29)
[2020-06-16] MEDS ORDERED: IOHEXOL 350 MG/ML 100ML IJ ONE ×2 (14:43→16:24)
[2020-06-16] MEDS ORDERED: LIDOCAINE 2%HCL (LOCAL ANESTH.) INJ 20ML MDV ONE (14:43)
[2020-06-16] MEDS ORDERED: fentaNYL CITRATE 100 MCG/2 ML VL ONE (14:50)
[2020-06-16] MEDS ORDERED: methylPREDNISolone SOD SUCC 125 MG/2 ML VL ONE (14:50)
[2020-06-16] MEDS ORDERED: diphenhdrAMINE HCL 50 MG/1 ML VL ONE (14:50)
[2020-06-16] MEDS ORDERED: FAMOTIDINE (10MG/ML) 2ML VL IV ONE (14:51)
[2020-06-16] MEDS ORDERED: MIDAZOLAM HCL 1MG/1ML-2 ML VIAL ONE (14:51)
[2020-06-16] MEDS ORDERED: SODIUM CHL 0.9% 50 ML ONE ×3 (15:45→17:50)
[2020-06-16] MEDS ORDERED: ANGIOMAX 250 MG VIAL IV ONE ×3 (15:45→17:50)
[2020-06-16] MEDS ORDERED: ASPirin 81 mg TAB ONE (16:31)
[2020-06-16] MEDS ORDERED: CLOPIDOGREL 300 MG TAB ONE (16:31)
[2020-06-16] MEDS: ATORVASTATIN 20 MG TAB PO SCH (20:37)
[2020-06-17 00:43] VITALS: BP 167/52
[2020-06-17] MEDS: metroNIDAZOLE 500MG/100ML 100 ML IV SCH (06:41)
[2020-06-17 06:54] LABS: Basophils # (auto) 0 10 ^3/uL (0-0.2); Basophils % (auto) 0.1 % (0.0-2.0); Eosinophils # (auto) 0 10 ^3/uL (0-0.8); Hematocrit 30.6 % (41.0-53.0); Hemoglobin 10.3 g/dL (13.5-17.5); Lymphocytes # (auto) 0.4 10 ^3/uL (0.4-5.4); Lymphocytes % (auto) 7.6 % (10.0-50.0); Mean Corpuscular Hemoglobin 33.5 pg (28.0-32.0); Mean Corpuscular Hgb Conc. 33.6 g/dL (32.0-36.0); Mean Corpuscular Volume 99.6 fL (80.0-100.0); Monocytes # (auto) 0.2 10 ^3/uL (0-1.3); Monocytes % (auto) 2.8 % (0.0-12.0); Neutrophils # (auto) 4.9 10 ^3/uL (1.6-8.6); Neutrophils % (auto) 89.5 % (37.0-80.0); Nucleated Red Blood Cells % 0.1 %; Platelet Count (auto) 179 10^3/uL (140-450); Red Blood Cells 3.07 10^6/uL (4.5-5.90); Red Cell Distribution Width 16.4 % (11.8-14.3); White Blood Cell 5.5 10^3/uL (4.4-10.8)
[2020-06-17 07:09] LABS: Potassium 4.1 mmol/L (3.5-5.1)
[2020-06-17 07:14] LABS: Albumin 2.9 g/dL (3.4-5.0); BUN/Creatinine Ratio 24.2; Calcium 8.7 mg/dL (8.5-10.1)
[2020-06-17 07:17] LABS: Bilirubin, Total 0.5 mg/dL (0.2-1.0); Total Protein 5.4 g/dL (6.4-8.2)
[2020-06-17 08:00] VITALS: BP 154/61
== END 2020-06-17 09:44 | disposition left against medical advice (07) | DRG 357 ==
LOC: EDBD 08:55 → ER 08:55 → TELE 14:22 → TELE-CENTR 06-12 22:20
PROVIDERS: ADMIT Nurse Practitioner Acute Care; ATTEND Family Medicine
PROC: 04753ZZ Dilation of Superior Mesenteric Artery, Percutaneous Approach (ICD-10-PCS; principal; 2020-06-16)
PROC: B4101ZZ Fluoroscopy of Abdominal Aorta using Low Osmolar Contrast (ICD-10-PCS; 2020-06-16)
PROC: B4141ZZ Fluoroscopy of Superior Mesenteric Artery using Low Osmolar Contrast (ICD-10-PCS; 2020-06-16)
DX: K55.8 Other vascular disorders of intestine (principal); K57.32 Diverticulitis of large intestine without perforation or abscess without bleeding; I48.20 Chronic atrial fibrillation, unspecified; D68.4 Acquired coagulation factor deficiency; I77.4 Celiac artery compression syndrome; N40.0 Benign prostatic hyperplasia without lower urinary tract symptoms; Z20.822 Contact with and (suspected) exposure to COVID-19; E78.5 Hyperlipidemia, unspecified; I25.10 Atherosclerotic heart disease of native coronary artery without angina pectoris; Z53.29 Procedure and treatment not carried out because of patient's decision for other reasons; I10 Essential (primary) hypertension; Z79.01 Long term (current) use of anticoagulants; Z82.49 Family history of ischemic heart disease and other diseases of the circulatory system; Z95.2 Presence of prosthetic heart valve; Z87.442 Personal history of urinary calculi; Z88.5 Allergy status to narcotic agent; Z91.041 Radiographic dye allergy status
CPT/HCPCS: 36415; 71045; 74176; 76942; 80048; 80053; 81001; 82270; 82565; 83605; 83690; 84484; 85025; 85610; 85730; 86850; 86900; 86901; 87040; 87426; 87493; 93005; 96374; C1769; G0378; J0696; J2250; J2543; J3490

== ENCOUNTER → 2020-06-22 | Outpatient (CLI) | payer MEDICARE, BC ==
[~2020-06-22] MED LIST changes: -WARF10TA PO; +WARF10TA20 PO
[2020-06-22 12:30] LABS: Basophils # (auto) 0 10 ^3/uL (0-0.2); Eosinophils # (auto) 0.1 10 ^3/uL (0-0.8); Hematocrit 33.4 % (41.0-53.0); Hemoglobin 11.4 g/dL (13.5-17.5); Lymphocytes # (auto) 1.1 10 ^3/uL (0.4-5.4); Monocytes # (auto) 0.4 10 ^3/uL (0-1.3); Neutrophils # (auto) 4.4 10 ^3/uL (1.6-8.6)
[2020-06-22 12:32] LABS: Basophils % (auto) 0.6 % (0.0-2.0); Eosinophils % (auto) 1.3 % (0.0-7.0); Lymphocytes % (auto) 18.2 % (10.0-50.0); Mean Corpuscular Hemoglobin 34.2 pg (28.0-32.0); Mean Corpuscular Hgb Conc. 34.1 g/dL (32.0-36.0); Mean Corpuscular Volume 100.3 fL (80.0-100.0); Monocytes % (auto) 6.7 % (0.0-12.0); Neutrophils % (auto) 73.2 % (37.0-80.0); Nucleated Red Blood Cells % 0.2 %; Platelet Count (auto) 190 10^3/uL (140-450); Red Blood Cells 3.33 10^6/uL (4.5-5.90); Red Cell Distribution Width 17.1 % (11.8-14.3); White Blood Cell 6.1 10^3/uL (4.4-10.8)
[2020-06-22 13:27] LABS: BUN/Creatinine Ratio 9.8; Calcium 8.7 mg/dL (8.5-10.1); Potassium 3.9 mmol/L (3.5-5.1)
== END | disposition home or self-care (01) ==
LOC: LAB 12:14
PROVIDERS: ATTEND Internal Medicine
DX: I48.91 Unspecified atrial fibrillation (principal)
CPT/HCPCS: 36415; 80048; 84439; 84443; 85025

== ENCOUNTER → 2021-01-02 | Outpatient (CLI) | payer MEDICARE ==
[2021-01-02 12:21] LABS: Basophils # (auto) 0 10 ^3/uL (0-0.2); Basophils % (auto) 1.1 % (0.0-2.0); Eosinophils # (auto) 0 10 ^3/uL (0-0.8); Eosinophils % (auto) 0.7 % (0.0-7.0); Hematocrit 34.8 % (41.0-53.0); Hemoglobin 11.8 g/dL (13.5-17.5); Lymphocytes # (auto) 0.8 10 ^3/uL (0.4-5.4); Lymphocytes % (auto) 25.5 % (10.0-50.0); Mean Corpuscular Hemoglobin 32.8 pg (28.0-32.0); Mean Corpuscular Hgb Conc. 33.9 g/dL (32.0-36.0); Mean Corpuscular Volume 96.9 fL (80.0-100.0); Monocytes # (auto) 0.2 10 ^3/uL (0-1.3); Monocytes % (auto) 7.6 % (0.0-12.0); Neutrophils # (auto) 1.9 10 ^3/uL (1.6-8.6); Neutrophils % (auto) 65.1 % (37.0-80.0); Nucleated Red Blood Cells % 0.1 %; Red Blood Cells 3.59 10^6/uL (4.5-5.90)
[2021-01-02 13:24] LABS: Albumin 3.4 g/dL (3.4-5.0); Calcium 9.1 mg/dL (8.5-10.1); Potassium 4.8 mmol/L (3.5-5.1)
[2021-01-02 13:28] LABS: BUN/Creatinine Ratio 19.5; Bilirubin, Total 0.9 mg/dL (0.2-1.0); Total Protein 6.6 g/dL (6.4-8.2)
== END | disposition home or self-care (01) ==
LOC: LAB 12:06
PROVIDERS: ATTEND Internal Medicine
DX: E11.9 Type 2 diabetes mellitus without complications (principal); D64.9 Anemia, unspecified
CPT/HCPCS: 36415; 80053; 82607; 83036; 83540; 83615; 85025

== ENCOUNTER → 2021-05-03 | Outpatient (CLI) | payer MEDICARE, BC ==
[2021-05-03 12:10] LABS: Basophils # (auto) 0 10 ^3/uL (0-0.2); Basophils % (auto) 1.2 % (0.0-2.0); Eosinophils # (auto) 0 10 ^3/uL (0-0.8); Eosinophils % (auto) 0.5 % (0.0-7.0); Hematocrit 36.9 % (41.0-53.0); Hemoglobin 12.1 g/dL (13.5-17.5); Lymphocytes # (auto) 0.8 10 ^3/uL (0.4-5.4); Lymphocytes % (auto) 19.4 % (10.0-50.0); Mean Corpuscular Hemoglobin 31.7 pg (28.0-32.0); Mean Corpuscular Hgb Conc. 32.7 g/dL (32.0-36.0); Monocytes # (auto) 0.3 10 ^3/uL (0-1.3); Monocytes % (auto) 7.7 % (0.0-12.0); Neutrophils # (auto) 2.8 10 ^3/uL (1.6-8.6); Neutrophils % (auto) 71.2 % (37.0-80.0); Nucleated Red Blood Cells % 0.3 %; Red Blood Cells 3.81 10^6/uL (4.5-5.90); Red Cell Distribution Width 17.3 % (11.8-14.3); White Blood Cell 3.9 10^3/uL (4.4-10.8)
[2021-05-03 13:06] LABS: Albumin 3.5 g/dL (3.4-5.0); Calcium 8.9 mg/dL (8.5-10.1); Potassium 4.6 mmol/L (3.5-5.1)
[2021-05-03 13:09] LABS: BUN/Creatinine Ratio 17.5; Bilirubin, Total 1.5 mg/dL (0.2-1.0); Total Protein 6.3 g/dL (6.4-8.2)
== END | disposition home or self-care (01) ==
LOC: LAB 11:41
PROVIDERS: ATTEND Internal Medicine
DX: I11.0 Hypertensive heart disease with heart failure (principal); I50.9 Heart failure, unspecified; Z79.899 Other long term (current) drug therapy
CPT/HCPCS: 36415; 80053; 83036; 83880; 84439; 84443; 85025; 85652

== ENCOUNTER → 2021-05-04 | Outpatient (CLI) | payer MEDICARE, BC ==
[~2021-05-04] MED LIST changes: +BUMETANIDE 1mg/4ml VIAL (0.25mg/ml) ONE; +BUMETANIDE 2.5mg/10ml (0.25 mg/ml) INJ IV ONE; +POTASSIUM CHL 20 Meq TABLET PO ONE
[2021-05-04 12:15] VITALS: BP 128/64
[2021-05-04 12:50] VITALS: BP 134/63
== END | disposition home or self-care (01) ==
LOC: CHF HDHVI 12:20
PROVIDERS: ATTEND Internal Medicine Cardiovascular Disease
DX: I11.0 Hypertensive heart disease with heart failure (principal); I50.23 Acute on chronic systolic (congestive) heart failure; R53.83 Other fatigue; Z79.899 Other long term (current) drug therapy
CPT/HCPCS: 83880; 96374; G0463; J3490

== ENCOUNTER → 2021-05-16 | Outpatient (CLI) | payer MEDICARE, BC ==
[~2021-05-16] MED LIST changes: -BUMETANIDE 1mg/4ml VIAL (0.25mg/ml) ONE; -BUMETANIDE 2.5mg/10ml (0.25 mg/ml) INJ IV ONE; +CLOP75TA70 PO; +FURO1TAB31 PO; +POTA10TA51 PO; -POTASSIUM CHL 20 Meq TABLET PO ONE
== END | disposition home or self-care (01) ==
LOC: Rad HDHVI 09:52
PROVIDERS: ATTEND Internal Medicine Cardiovascular Disease
DX: I65.21 Occlusion and stenosis of right carotid artery (principal); I10 Essential (primary) hypertension
CPT/HCPCS: 93880

== ENCOUNTER → 2021-05-24 | Outpatient (CLI) | payer MEDICARE, BC ==
[2021-05-24 10:20] VITALS: BP 138/68
[2021-05-24 10:35] VITALS: BP 140/59
[2021-05-24 11:31] LABS: Basophils # (auto) 0 10 ^3/uL (0-0.2); Eosinophils # (auto) 0 10 ^3/uL (0-0.8); Hematocrit 35.8 % (41.0-53.0); Hemoglobin 11.8 g/dL (13.5-17.5); Lymphocytes # (auto) 0.8 10 ^3/uL (0.4-5.4); Lymphocytes % (auto) 26.6 % (10.0-50.0); Mean Corpuscular Hemoglobin 31.9 pg (28.0-32.0); Mean Corpuscular Hgb Conc. 33.1 g/dL (32.0-36.0); Mean Corpuscular Volume 96.4 fL (80.0-100.0); Monocytes # (auto) 0.3 10 ^3/uL (0-1.3); Monocytes % (auto) 9.7 % (0.0-12.0); Neutrophils # (auto) 1.9 10 ^3/uL (1.6-8.6); Neutrophils % (auto) 61.7 % (37.0-80.0); Nucleated Red Blood Cells % 0.2 %; Red Blood Cells 3.71 10^6/uL (4.5-5.90); Red Cell Distribution Width 17.7 % (11.8-14.3); White Blood Cell 3.1 10^3/uL (4.4-10.8)
[2021-05-24 11:43] LABS: INR 1.8 (0.9-1.15); Partial Thromboplastin Time 32.7 sec (23.6-33.0)
[2021-05-24 12:49] LABS: Potassium 4.1 mmol/L (3.5-5.1)
[2021-05-24 13:00] LABS: BUN/Creatinine Ratio 21.1; Calcium 9.1 mg/dL (8.5-10.1)
== END | disposition home or self-care (01) ==
LOC: Rad HDHVI 10:01
PROVIDERS: ATTEND Internal Medicine Cardiovascular Disease
DX: Z01.818 Encounter for other preprocedural examination (principal); I48.91 Unspecified atrial fibrillation; R94.31 Abnormal electrocardiogram [ECG] [EKG]; E11.9 Type 2 diabetes mellitus without complications; I49.5 Sick sinus syndrome; J98.11 Atelectasis; I11.9 Hypertensive heart disease without heart failure; J90 Pleural effusion, not elsewhere classified; I70.0 Atherosclerosis of aorta
CPT/HCPCS: 36415; 71046; 80048; 85025; 85610; 85730; 93005; G0463

== ENCOUNTER 2021-06-28 07:07 | Day surgery (SDC) | payer MEDICARE, BC ==
[~2021-06-28] VITALS: Ht 190.5 cm; Wt 108.4 kg
[~2021-06-28 07:07] MED LIST changes: -POTA10TA51 PO; +POTA1TAB61 PO
[2021-06-28] MEDS ORDERED: MIDAZOLAM HCL 2MG/2ML 2ml VIAL (1mg/ml) ONE (07:40)
[2021-06-28] MEDS ORDERED: ANGIOMAX 250 MG VIAL IV ONE (07:40)
[2021-06-28] MEDS ORDERED: fentaNYL CITRATE 100 MCG/2 ML VL ONE (07:40)
[2021-06-28] MEDS ORDERED: LIDOCAINE 2%HCL (LOCAL ANESTH.) INJ 20ML MDV ONE (07:41)
[2021-06-28] MEDS ORDERED: SODIUM CHL 0.9% 0 ML ONE (07:41)
[2021-06-28] MEDS ORDERED: IOHEXOL 350 MG/ML 100ML IJ ONE ×2 (07:45→09:12)
[2021-06-28] MEDS ORDERED: diphenhdrAMINE HCL 50 MG/1 ML VL ONE (08:28)
[2021-06-28] MEDS ORDERED: methylPREDNISolone SOD SUCC 125 MG/2 ML VL ONE (08:28)
[2021-06-28] MEDS ORDERED: FAMOTIDINE (10MG/ML) 2ML VL IV ONE (08:29)
== END 2021-06-28 11:15 | disposition home or self-care (01) ==
LOC: CATH 07:07
PROVIDERS: ATTEND Internal Medicine Cardiovascular Disease
DX: I27.20 Pulmonary hypertension, unspecified (principal); I50.9 Heart failure, unspecified; I35.0 Nonrheumatic aortic (valve) stenosis; J44.9 Chronic obstructive pulmonary disease, unspecified; J81.1 Chronic pulmonary edema; E78.5 Hyperlipidemia, unspecified; Z87.891 Personal history of nicotine dependence; Z95.2 Presence of prosthetic heart valve
CPT/HCPCS: 75736; 93453; C1760; C1894; J1200; J1644; J2250; J2930; J3490; Q9967; U0003; 99152; C1751

== ENCOUNTER → 2021-07-30 | Outpatient (CLI) | payer MEDICARE, BC ==
[~2021-07-30] MED LIST changes: +POTA8TAB2 PO
[2021-07-30 10:30] VITALS: BP 150/87
[2021-07-30 10:47] VITALS: BP 154/66
[2021-07-30 11:57] LABS: Basophils # (auto) 0.1 10 ^3/uL (0-0.2); Basophils % (auto) 1.2 % (0.0-2.0); Eosinophils # (auto) 0.1 10 ^3/uL (0-0.8); Eosinophils % (auto) 1.4 % (0.0-7.0); Hematocrit 35.4 % (41.0-53.0); Hemoglobin 11.8 g/dL (13.5-17.5); Lymphocytes % (auto) 24.1 % (10.0-50.0); Mean Corpuscular Hemoglobin 32.9 pg (28.0-32.0); Mean Corpuscular Hgb Conc. 33.3 g/dL (32.0-36.0); Mean Corpuscular Volume 98.7 fL (80.0-100.0); Monocytes # (auto) 0.3 10 ^3/uL (0-1.3); Monocytes % (auto) 7.5 % (0.0-12.0); Neutrophils # (auto) 2.9 10 ^3/uL (1.6-8.6); Neutrophils % (auto) 65.8 % (37.0-80.0); Nucleated Red Blood Cells % 0.3 %; Red Blood Cells 3.59 10^6/uL (4.5-5.90); White Blood Cell 4.3 10^3/uL (4.4-10.8)
[2021-07-30 12:01] LABS: Red Cell Distribution Width 21.2 % (11.8-14.3)
[2021-07-30 12:06] LABS: INR 2.16 (0.9-1.15)
[2021-07-30 13:54] LABS: BUN/Creatinine Ratio 23.4; Calcium 9.1 mg/dL (8.5-10.1); Potassium 4.6 mmol/L (3.5-5.1)
== END | disposition home or self-care (01) ==
LOC: Rad HDHVI 10:09
PROVIDERS: ATTEND Internal Medicine Cardiovascular Disease
DX: Z01.812 Encounter for preprocedural laboratory examination (principal); I48.91 Unspecified atrial fibrillation; I48.92 Unspecified atrial flutter; R94.31 Abnormal electrocardiogram [ECG] [EKG]; I51.7 Cardiomegaly; I34.0 Nonrheumatic mitral (valve) insufficiency; I25.10 Atherosclerotic heart disease of native coronary artery without angina pectoris; I70.0 Atherosclerosis of aorta; M51.34 Other intervertebral disc degeneration, thoracic region; J90 Pleural effusion, not elsewhere classified; Z95.0 Presence of cardiac pacemaker
CPT/HCPCS: 36415; 71046; 80048; 85025; 85610; 85730; 93005; G0463

== ENCOUNTER 2021-08-02 07:45 | Day surgery (SDC) | payer MEDICARE, BC ==
[~2021-08-02] VITALS: Ht 190.5 cm; Wt 107.0 kg
[~2021-08-02 07:45] MED LIST changes: -CLOP75TA70 PO; -POTA1TAB61 PO
[2021-08-02] MEDS ORDERED: MIDAZOLAM HCL 2MG/2ML 2ml VIAL (1mg/ml) IV ONE ×2 (08:00→10:19)
[2021-08-02] MEDS ORDERED: MIDAZOLAM HCL 2MG/2ML 2ml VIAL (1mg/ml) ONE (10:19)
== END 2021-08-02 12:30 | disposition home or self-care (01) ==
LOC: CATH 07:45
PROVIDERS: ATTEND Internal Medicine Cardiovascular Disease
DX: I08.3 Combined rheumatic disorders of mitral, aortic and tricuspid valves (principal); I11.0 Hypertensive heart disease with heart failure; I50.9 Heart failure, unspecified; I25.119 Atherosclerotic heart disease of native coronary artery with unspecified angina pectoris; E78.5 Hyperlipidemia, unspecified; I48.0 Paroxysmal atrial fibrillation; I49.5 Sick sinus syndrome; Z86.73 Personal history of transient ischemic attack (TIA), and cerebral infarction without residual deficits; Z95.1 Presence of aortocoronary bypass graft; Z20.822 Contact with and (suspected) exposure to COVID-19; Z82.49 Family history of ischemic heart disease and other diseases of the circulatory system
CPT/HCPCS: 93312; J2250; U0003; 99152

== ENCOUNTER → 2021-10-17 | Outpatient (CLI) | payer MEDICARE, BC | END | disposition home or self-care (01) | LOC: Rad HDHVI 07:55 | PROVIDERS: ATTEND Internal Medicine Cardiovascular Disease | DX: I08.8 Other rheumatic multiple valve diseases (principal); I27.21 Secondary pulmonary arterial hypertension; R00.2 Palpitations | CPT/HCPCS: 93306 ==

== ENCOUNTER → 2021-10-22 | Outpatient (CLI) | payer MEDICARE, BC | END | disposition home or self-care (01) | LOC: Rad HDHVI 08:48 | PROVIDERS: ATTEND Internal Medicine Cardiovascular Disease | DX: I70.202 Unspecified atherosclerosis of native arteries of extremities, left leg (principal) | CPT/HCPCS: 93925 ==

== ENCOUNTER → 2021-11-22 | Outpatient (CLI) | payer MEDICARE, BC ==
[2021-11-22 09:17] VITALS: BP 170/99
[2021-11-22 10:25] VITALS: BP 180/74
[2021-11-22 11:52] LABS: Basophils # (auto) 0 10 ^3/uL (0-0.2); Eosinophils # (auto) 0 10 ^3/uL (0-0.8); Hematocrit 37.6 % (41.0-53.0); Monocytes # (auto) 0.2 10 ^3/uL (0-1.3); Neutrophils # (auto) 2.1 10 ^3/uL (1.6-8.6); Red Cell Distribution Width 17.7 % (11.8-14.3)
[2021-11-22 11:54] LABS: Basophils % (auto) 0.9 % (0.0-2.0); Eosinophils % (auto) 1.2 % (0.0-7.0); Hemoglobin 12.2 g/dL (13.5-17.5); Lymphocytes # (auto) 0.9 10 ^3/uL (0.4-5.4); Lymphocytes % (auto) 26.7 % (10.0-50.0); Mean Corpuscular Hemoglobin 33.4 pg (28.0-32.0); Mean Corpuscular Hgb Conc. 32.4 g/dL (32.0-36.0); Mean Corpuscular Volume 103.1 fL (80.0-100.0); Monocytes % (auto) 6.7 % (0.0-12.0); Neutrophils % (auto) 64.5 % (37.0-80.0); Nucleated Red Blood Cells % 0.3 %; Red Blood Cells 3.64 10^6/uL (4.5-5.90); White Blood Cell 3.3 10^3/uL (4.4-10.8)
[2021-11-22 11:58] LABS: Calcium 9.5 mg/dL (8.5-10.1); Potassium 4.6 mmol/L (3.5-5.1)
[2021-11-22 12:16] LABS: INR 2.37 (0.9-1.15); Partial Thromboplastin Time 38.4 sec (23.6-33.0)
== END | disposition home or self-care (01) ==
LOC: Rad HDHVI 09:01
PROVIDERS: ATTEND Internal Medicine Cardiovascular Disease
DX: Z01.812 Encounter for preprocedural laboratory examination (principal); I48.91 Unspecified atrial fibrillation; I44.7 Left bundle-branch block, unspecified; R94.31 Abnormal electrocardiogram [ECG] [EKG]; I11.0 Hypertensive heart disease with heart failure; I50.9 Heart failure, unspecified; R07.89 Other chest pain
CPT/HCPCS: 36415; 71046; 80048; 85025; 85610; 85730; 93005; G0463

== ENCOUNTER 2021-11-27 11:00 | Inpatient (IN) | payer MEDICARE, BC ==
[~2021-11-27] VITALS: Ht 190.5 cm; Wt 113.1 kg
[2021-11-27] VITALS (9 sets, daily range): BP systolic 135–158; BP diastolic 54–83
[~2021-11-27 11:00] MED LIST changes: -DILT-29 PO
[2021-11-27] MEDS ORDERED: fentaNYL CITRATE 100 MCG/2 ML VL ONE (13:03)
[2021-11-27] MEDS ORDERED: VANCOMYCIN 1GM/250ML 250 ML IV ONE (13:03)
[2021-11-27] MEDS ORDERED: MIDAZOLAM HCL 2MG/2ML 2ml VIAL (1mg/ml) ONE (13:03)
[2021-11-27] MEDS ORDERED: VANCOMYCIN HCL 1000 MG VL ONE (13:03)
[2021-11-27] MEDS ORDERED: LIDOCAINE 2%HCL (LOCAL ANESTH.) INJ 10ml MDV ONE ×2 (13:04→14:02)
[2021-11-27] MEDS ORDERED: IOHEXOL 350 MG/ML 100ML IJ ONE (13:18)
[2021-11-27] MEDS ORDERED: methylPREDNISolone SOD SUCC 125 MG/2 ML VL ONE (13:52)
[2021-11-27] MEDS ORDERED: NITROGLYCERIN 0.4 MG SL TAB SL PRN (15:15)
[2021-11-27] MEDS ORDERED: HYDROcodone-ACET 5/325MG TAB PO PRN (15:15)
[2021-11-27] MEDS ORDERED: MORPHINE SULFATE INJ 2 MG/ml SYRG IV PRN (15:15)
[2021-11-27] MEDS ORDERED: ACETAMINOPHEN 325 MG TAB PO PRN (15:15)
[2021-11-27] MEDS ORDERED: TAMSULOSIN HYDROCHLORIDE 0.4 MG CAP PO SCH (18:00)
[2021-11-27] MEDS ORDERED: ATORVASTATIN 20 MG TAB PO SCH (22:00)
[2021-11-28] MEDS ORDERED: VANCOMYCIN 1GM/250ML 250 ML IV SCH ×3 (03:00→15:00)
[2021-11-28 05:00] VITALS: BP 155/72
[2021-11-28 09:08] VITALS: BP 162/64
[2021-11-28] MEDS ORDERED: FUROSEMIDE 40 MG TAB PO SCH (10:00)
[2021-11-28] MEDS ORDERED: BENAZEPRIL HCL 10 MG TAB PO SCH (10:00)
[2021-11-28] MEDS ORDERED: POTASSIUM CHLORIDE 8 MEQ TAB PO SCH (10:00)
[2021-11-28 13:00] VITALS: BP 160/60
[2021-11-28 16:29] VITALS: BP 161/66
[2021-11-28 18:04] VITALS: BP 162/64
== END 2021-11-28 19:27 | disposition home or self-care (01) | DRG 226 ==
LOC: CATH 11:00 → TELE 15:10 → TELE-WESTW 17:20
PROVIDERS: ADMIT Internal Medicine Cardiovascular Disease; ATTEND Internal Medicine Cardiovascular Disease
PROC: 02PA0MZ Removal of Cardiac Lead from Heart, Open Approach (ICD-10-PCS; principal; 2021-11-27)
PROC: 02HK3KZ Insertion of Defibrillator Lead into Right Ventricle, Percutaneous Approach (ICD-10-PCS; 2021-11-27)
PROC: 0JH609Z Insertion of Cardiac Resynchronization Defibrillator Pulse Generator into Chest Subcutaneous Tissue and Fascia, Open Approach (ICD-10-PCS; 2021-11-27)
PROC: 02HL3KZ Insertion of Defibrillator Lead into Left Ventricle, Percutaneous Approach (ICD-10-PCS; 2021-11-27)
PROC: 02H63KZ Insertion of Defibrillator Lead into Right Atrium, Percutaneous Approach (ICD-10-PCS; 2021-11-27)
PROC: 0JPT0PZ Removal of Cardiac Rhythm Related Device from Trunk Subcutaneous Tissue and Fascia, Open Approach (ICD-10-PCS; 2021-11-27)
DX: I11.0 Hypertensive heart disease with heart failure (principal); I50.23 Acute on chronic systolic (congestive) heart failure; D68.59 Other primary thrombophilia; I42.0 Dilated cardiomyopathy; I48.91 Unspecified atrial fibrillation; E78.5 Hyperlipidemia, unspecified; Z20.822 Contact with and (suspected) exposure to COVID-19; Z95.810 Presence of automatic (implantable) cardiac defibrillator; Z95.2 Presence of prosthetic heart valve; Z86.73 Personal history of transient ischemic attack (TIA), and cerebral infarction without residual deficits
CPT/HCPCS: 33214; 71045; 93005; 99152; 99153; C1769; C1882; G0378; J2001; J2250

== ENCOUNTER → 2022-01-03 | Outpatient (CLI) | payer MEDICARE, BC | END | disposition home or self-care (01) | LOC: Rad HDHVI 08:06 | PROVIDERS: ATTEND Internal Medicine Cardiovascular Disease | DX: I08.1 Rheumatic disorders of both mitral and tricuspid valves (principal); R06.02 Shortness of breath; I10 Essential (primary) hypertension; R00.2 Palpitations | CPT/HCPCS: 93306 ==

== ENCOUNTER 2022-03-03 11:34 | Emergency (ER) | payer MEDICARE, BC ==
[~2022-03-03] VITALS: Ht 190.5 cm; Wt 113.0 kg
[2022-03-03 11:45] VITALS: BP 151/76
== END 2022-03-03 13:24 | disposition left against medical advice (07) ==
LOC: ER 11:34
DX: S51.012A Laceration without foreign body of left elbow, initial encounter (principal); Z53.21 Procedure and treatment not carried out due to patient leaving prior to being seen by health care provider; X58.XXXA Exposure to other specified factors, initial encounter; Y93.89 Activity, other specified; Y92.89 Other specified places as the place of occurrence of the external cause; Y99.8 Other external cause status

== ENCOUNTER → 2022-03-14 | Outpatient (CLI) | payer MEDICARE, BC ==
[2022-03-14 11:59] LABS: Potassium 4.8 mmol/L (3.5-5.1)
[2022-03-14 12:05] LABS: Albumin 3.3 g/dL (3.4-5.0); BUN/Creatinine Ratio 19.3; Bilirubin, Total 0.6 mg/dL (0.2-1.0); Calcium 8.8 mg/dL (8.5-10.1); Total Protein 6.3 g/dL (6.4-8.2)
[2022-03-14 12:07] LABS: Free T4 (Free Thyroxine) 1.15 ng/dL (0.89-1.76); Prostate Specific Antigen 0.08 ng/mL (0.0-4.0)
== END | disposition home or self-care (01) ==
LOC: LAB 10:04
PROVIDERS: ATTEND Internal Medicine
DX: E11.9 Type 2 diabetes mellitus without complications (principal); I10 Essential (primary) hypertension; Z85.46 Personal history of malignant neoplasm of prostate
CPT/HCPCS: 36415; 80053; 83036; 84153; 84439; 84443

== ENCOUNTER → 2022-06-04 | Outpatient (CLI) | payer MEDICARE, BC ==
[2022-06-04 13:32] LABS: Basophils # (auto) 0 10 ^3/uL (0-0.2); Eosinophils # (auto) 0 10 ^3/uL (0-0.8); Lymphocytes # (auto) 1.3 10 ^3/uL (0.4-5.4); Mean Corpuscular Hemoglobin 35.4 pg (28.0-32.0); Neutrophils # (auto) 3.4 10 ^3/uL (1.6-8.6); Nucleated Red Blood Cells % 0.2 %; White Blood Cell 5.1 10^3/uL (4.4-10.8)
[2022-06-04 13:34] LABS: Basophils % (auto) 0.5 % (0.0-2.0); Eosinophils % (auto) 0.6 % (0.0-7.0); Hematocrit 37.2 % (41.0-53.0); Hemoglobin 12.5 g/dL (13.5-17.5); Mean Corpuscular Hgb Conc. 33.6 g/dL (32.0-36.0); Mean Corpuscular Volume 105.6 fL (80.0-100.0); Monocytes # (auto) 0.4 10 ^3/uL (0-1.3); Monocytes % (auto) 7.1 % (0.0-12.0); Neutrophils % (auto) 66.8 % (37.0-80.0); Red Blood Cells 3.53 10^6/uL (4.5-5.90); Red Cell Distribution Width 16.5 % (11.8-14.3)
[2022-06-04 13:48] LABS: Albumin 3.5 g/dL (3.4-5.0); BUN/Creatinine Ratio 20.5; Calcium 9.2 mg/dL (8.5-10.1); Potassium 4.3 mmol/L (3.5-5.1)
[2022-06-04 13:51] LABS: Bilirubin, Total 0.8 mg/dL (0.2-1.0); Total Protein 6.1 g/dL (6.4-8.2)
[2022-06-04 16:26] LABS: Urine Blood Negative /uL (Negative); Urine Specific Gravity 1.017 (1.001-1.035)
[2022-06-04 17:04] LABS: Free T4 (Free Thyroxine) 0.85 ng/dL (0.89-1.76); Prostate Specific Antigen 0.08 ng/mL (0.0-4.0)
== END | disposition home or self-care (01) ==
LOC: LAB 08:22
PROVIDERS: ATTEND Internal Medicine Cardiovascular Disease
DX: E11.9 Type 2 diabetes mellitus without complications (principal); E55.9 Vitamin D deficiency, unspecified
CPT/HCPCS: 36415; 80053; 80061; 81003; 82306; 82607; 83036; 84153; 84403; 84439; 84443; 85025

== ENCOUNTER → 2022-06-11 | Outpatient (CLI) | payer MEDICARE, BC | END | disposition home or self-care (01) | LOC: Rad HDHVI 08:06 | PROVIDERS: ATTEND Internal Medicine Cardiovascular Disease | DX: I08.3 Combined rheumatic disorders of mitral, aortic and tricuspid valves (principal); I11.9 Hypertensive heart disease without heart failure; R00.2 Palpitations | CPT/HCPCS: 93306 ==

== ENCOUNTER → 2022-07-04 | Outpatient (CLI) | payer MEDICARE, BC ==
[~2022-07-04] MED LIST changes: +ENOXAPARIN SOD 100 MG/1 ML SYRINGE SC ONE
[2022-07-04 08:41] VITALS: BP 158/43
[2022-07-04 09:00] VITALS: BP 143/54
== END | disposition home or self-care (01) ==
LOC: CHF HDHVI 08:39
PROVIDERS: ATTEND Internal Medicine Cardiovascular Disease
DX: T81.40XA Infection following a procedure, unspecified, initial encounter (principal); E11.9 Type 2 diabetes mellitus without complications; I11.9 Hypertensive heart disease without heart failure; Z79.01 Long term (current) use of anticoagulants; Z95.2 Presence of prosthetic heart valve; Y83.8 Other surgical procedures as the cause of abnormal reaction of the patient, or of later complication, without mention of misadventure at the time of the procedure; Y92.89 Other specified places as the place of occurrence of the external cause
CPT/HCPCS: 96372; G0463; J1650

== ENCOUNTER → 2022-07-12 | Outpatient (CLI) | payer MEDICARE, BC ==
[~2022-07-12] MED LIST changes: -ENOXAPARIN SOD 100 MG/1 ML SYRINGE SC ONE
== END | disposition home or self-care (01) ==
LOC: Rad HDHVI 10:44
PROVIDERS: ATTEND Internal Medicine Cardiovascular Disease
DX: M48.061 Spinal stenosis, lumbar region without neurogenic claudication (principal); M43.17 Spondylolisthesis, lumbosacral region; M85.88 Other specified disorders of bone density and structure, other site; M54.50 Low back pain, unspecified; I70.0 Atherosclerosis of aorta; I99.8 Other disorder of circulatory system
CPT/HCPCS: 72131

== ENCOUNTER → 2022-11-12 | Outpatient (CLI) | payer MEDICARE, BC ==
[~2022-11-12] MED LIST changes: +BENA-36 PO; -BENA20TA14 PO; -POTA8TAB2 PO; +POTA8TAB38 PO; +WARF-115 PO; -WARF10TA20 PO
[2022-11-12 12:41] LABS: Eosinophils # (auto) 0 10 ^3/uL (0-0.8); Mean Corpuscular Hemoglobin 33.6 pg (28.0-32.0); Monocytes # (auto) 0.3 10 ^3/uL (0-1.3)
[2022-11-12 12:43] LABS: Basophils # (auto) 0 10 ^3/uL (0-0.2); Basophils % (auto) 0.8 % (0.0-2.0); Eosinophils % (auto) 0.5 % (0.0-7.0); Hematocrit 37.3 % (41.0-53.0); Hemoglobin 12.2 g/dL (13.5-17.5); Lymphocytes # (auto) 0.9 10 ^3/uL (0.4-5.4); Lymphocytes % (auto) 20.1 % (10.0-50.0); Mean Corpuscular Hgb Conc. 32.7 g/dL (32.0-36.0); Mean Corpuscular Volume 102.9 fL (80.0-100.0); Monocytes % (auto) 6.3 % (0.0-12.0); Neutrophils # (auto) 3.3 10 ^3/uL (1.6-8.6); Neutrophils % (auto) 72.3 % (37.0-80.0); Nucleated Red Blood Cells % 0.1 %; Red Blood Cells 3.62 10^6/uL (4.5-5.90); Red Cell Distribution Width 17.1 % (11.8-14.3); White Blood Cell 4.6 10^3/uL (4.4-10.8)
[2022-11-12 13:27] LABS: Albumin 3.6 g/dL (3.4-5.0); Calcium 8.9 mg/dL (8.5-10.1); Potassium 5.1 mmol/L (3.5-5.1)
[2022-11-12 13:46] LABS: BUN/Creatinine Ratio 22.9 (10.0-20.0); Bilirubin, Total 0.8 mg/dL (0.2-1.0); Total Protein 6.5 g/dL (6.4-8.2)
== END | disposition home or self-care (01) ==
LOC: LAB 12:27
PROVIDERS: ATTEND Internal Medicine
DX: I10 Essential (primary) hypertension (principal); E11.9 Type 2 diabetes mellitus without complications; Z85.46 Personal history of malignant neoplasm of prostate
CPT/HCPCS: 36415; 80053; 83036; 84153; 84443; 85025; 85652

== ENCOUNTER → 2023-05-02 | Outpatient (CLI) | payer MEDICARE, BC | END | disposition home or self-care (01) | LOC: Rad HDHVI 09:47 | PROVIDERS: ATTEND Internal Medicine Cardiovascular Disease | DX: I11.9 Hypertensive heart disease without heart failure (principal); I73.9 Peripheral vascular disease, unspecified; J90 Pleural effusion, not elsewhere classified; I31.39 Other pericardial effusion (noninflammatory) | CPT/HCPCS: 93306 ==

== ENCOUNTER → 2023-11-19 | Outpatient (CLI) | payer MEDICARE, BC | END | disposition home or self-care (01) | LOC: Rad HDHVI 10:02 | PROVIDERS: ATTEND Internal Medicine Cardiovascular Disease | DX: I08.8 Other rheumatic multiple valve diseases (principal); I10 Essential (primary) hypertension; E78.5 Hyperlipidemia, unspecified | CPT/HCPCS: 93306 ==

== ENCOUNTER → 2023-12-23 | Outpatient (CLI) | payer MEDICARE, BC ==
[2023-12-23 09:45] LABS: Urine Bacteria None Seen /hpf (None Seen)
[2023-12-23 10:01] LABS: Basophils # (auto) 0 10 ^3/uL (0-0.2); Eosinophils # (auto) 0 10 ^3/uL (0-0.8); Lymphocytes # (auto) 0.9 10 ^3/uL (0.4-5.4); Neutrophils # (auto) 2.1 10 ^3/uL (1.6-8.6); Red Blood Cells 3.42 10^6/uL (4.5-5.90); Red Cell Distribution Width 16.9 % (11.8-14.3); White Blood Cell 3.3 10^3/uL (4.4-10.8)
[2023-12-23 10:05] LABS: Eosinophils % (auto) 1.1 % (0.0-7.0); Hematocrit 35.6 % (41.0-53.0); Hemoglobin 11.9 g/dL (13.5-17.5); Lymphocytes % (auto) 27.7 % (10.0-50.0); Mean Corpuscular Hemoglobin 34.8 pg (28.0-32.0); Mean Corpuscular Hgb Conc. 33.4 g/dL (32.0-36.0); Mean Corpuscular Volume 104.1 fL (80.0-100.0); Monocytes # (auto) 0.2 10 ^3/uL (0-1.3); Monocytes % (auto) 7.3 % (0.0-12.0); Neutrophils % (auto) 62.9 % (37.0-80.0); Nucleated Red Blood Cells % 0.6 %
[2023-12-23 10:34] LABS: Urine Blood Negative /uL (Negative); Urine Clarity Clear (Clear); Urine Color Yellow (Yellow); Urine Protein, UAD Negative (Negative); Urine Specific Gravity 1.016 (1.001-1.035); Urine Urobilinogen Normal (Negative); Urine WBC <1 /hpf (0 - 3); Urine pH 5.5 (5.0-9.0)
[2023-12-23 10:48] LABS: Alanine Aminotransferase 20 U/L (7-40); Albumin 4.1 g/dL (3.2-4.8); Alkaline Phosphatase 89 U/L (46-116); Anion Gap 5 (5-15); Aspartate Aminotransferase 18 U/L (13-40); BUN/Creatinine Ratio 16.1 (10.0-20.0); Blood Urea Nitrogen 18 mg/dL (9-23); Calcium 10.1 mg/dL (8.7-10.4); Carbon Dioxide 29 mmol/L (20-30); Chloride 108 mmol/L (98-107); Cholesterol 123 mg/dL (< 200); Glucose 109 mg/dL (74-106); HDL Cholesterol 49 mg/dL (40-59); LDL Cholesterol 52 mg/dL (< 100); Potassium 4.8 mmol/L (3.5-5.1); Sodium 142 mmol/L (136-145); Triglycerides 71 mg/dL (< 150)
[2023-12-23 10:49] LABS: Bilirubin, Total 1.2 mg/dL (0.2-1.0); Total Protein 6.4 g/dL (5.7-8.2)
[2023-12-23 11:03] LABS: Prostate Specific Antigen 0.05 ng/mL (0.0-4.0)
[2023-12-23 11:10] LABS: Free T4 (Free Thyroxine) 1.05 ng/dL (0.89-1.76)
[2023-12-23 11:44] LABS: Erythrocyte Sedimentation Rate 8 mm/hr (0-20)
== END | disposition home or self-care (01) ==
LOC: LAB 09:26
PROVIDERS: ATTEND Internal Medicine
DX: I10 Essential (primary) hypertension (principal); E11.9 Type 2 diabetes mellitus without complications; Z79.899 Other long term (current) drug therapy
CPT/HCPCS: 36415; 80053; 80061; 81001; 82043; 82607; 83036; 84153; 84439; 84443; 85025; 85652

== ENCOUNTER → 2024-06-03 | Outpatient (CLI) | payer MEDICARE, BC ==
[~2024-06-03] MED LIST changes: -TAMS0.4C36 PO; +TAMS0.4C39 PO
== END | disposition home or self-care (01) ==
LOC: Rad HDHVI 09:56
PROVIDERS: ATTEND Internal Medicine Cardiovascular Disease
DX: R07.9 Chest pain, unspecified (principal); R55 Syncope and collapse
CPT/HCPCS: 93306

== ENCOUNTER → 2024-06-21 | Outpatient (CLI) | payer MEDICARE, BC ==
[2024-06-21 11:51] LABS: Basophils # (auto) 0 10 ^3/uL (0-0.2); Basophils % (auto) 1.1 % (0.0-2.0); Eosinophils # (auto) 0 10 ^3/uL (0-0.8); Lymphocytes # (auto) 0.8 10 ^3/uL (0.4-5.4); Monocytes # (auto) 0.2 10 ^3/uL (0-1.3); Neutrophils # (auto) 1.6 10 ^3/uL (1.6-8.6)
[2024-06-21 11:56] LABS: Eosinophils % (auto) 0.7 % (0.0-7.0); Hematocrit 31.7 % (41.0-53.0); Hemoglobin 10.6 g/dL (13.5-17.5); Lymphocytes % (auto) 28.9 % (10.0-50.0); Mean Corpuscular Hemoglobin 35.6 pg (28.0-32.0); Mean Corpuscular Hgb Conc. 33.3 g/dL (32.0-36.0); Mean Corpuscular Volume 106.8 fL (80.0-100.0); Monocytes % (auto) 8.3 % (0.0-12.0); Nucleated Red Blood Cells % 0.4 %; Platelet Count (auto) 179 10^3/uL (140-450); Red Blood Cells 2.97 10^6/uL (4.5-5.90); White Blood Cell 2.7 10^3/uL (4.4-10.8)
[2024-06-21 12:33] LABS: Alanine Aminotransferase 15 U/L (7-40); Alkaline Phosphatase 70 U/L (46-116); Anion Gap 6 (5-15); Carbon Dioxide 29 mmol/L (20-31); Chloride 106 mmol/L (98-107); Glucose 106 mg/dL (74-106); Potassium 5.1 mmol/L (3.5-5.1); Sodium 141 mmol/L (136-145)
[2024-06-21 12:34] LABS: BUN/Creatinine Ratio 13.2 (10.0-20.0); Blood Urea Nitrogen 15 mg/dL (9-23)
[2024-06-21 12:35] LABS: Albumin 3.9 g/dL (3.2-4.8); Aspartate Aminotransferase 16 U/L (13-40)
[2024-06-21 12:36] LABS: Bilirubin, Total 0.9 mg/dL (0.2-1.0); Total Protein 5.8 g/dL (5.7-8.2)
[2024-06-21 12:51] LABS: Uric Acid 6.8 mg/dL (3.7-9.2)
== END | disposition home or self-care (01) ==
LOC: LAB 10:50
PROVIDERS: ATTEND Internal Medicine
DX: I10 Essential (primary) hypertension (principal); E11.9 Type 2 diabetes mellitus without complications; Z95.2 Presence of prosthetic heart valve; Z79.899 Other long term (current) drug therapy
CPT/HCPCS: 36415; 80053; 80162; 83036; 83735; 84550; 85025

== ENCOUNTER → 2024-10-12 | Outpatient (CLI) | payer MEDICARE, BC ==
[2024-10-12 11:32] LABS: Alanine Aminotransferase 36 U/L (7-40); Albumin 4.3 g/dL (3.2-4.8); Alkaline Phosphatase 111 U/L (46-116); Anion Gap 8 (5-15); Aspartate Aminotransferase 29 U/L (13-40); BUN/Creatinine Ratio 16.2 (10.0-20.0); Blood Urea Nitrogen 18 mg/dL (9-23); Calcium 10.4 mg/dL (8.7-10.4); Carbon Dioxide 27 mmol/L (20-31); Chloride 106 mmol/L (98-107); Glucose 112 mg/dL (74-106); Potassium 4.8 mmol/L (3.5-5.1); Sodium 141 mmol/L (136-145); Total Protein 6.3 g/dL (5.7-8.2)
[2024-10-12 11:34] LABS: % Iron Saturation 17.1 % (20-55); Bilirubin, Total 1.3 mg/dL (0.2-1.0)
[2024-10-12 11:54] LABS: Folate (Folic Acid) > 48.00 ng/mL (>5.38)
[2024-10-12 12:41] LABS: Wright Stain Ready for Review
[2024-10-13 09:07] LABS: Immunoglobulin A 204 mg/dL (61-437); Immunoglobulin M 65 mg/dL (15-143)
[2024-10-13 10:06] LABS: Haptoglobin <10 mg/dL (38-329); Immunoglobulin G, Serum 804 mg/dL (603-1613)
[2024-10-13 10:43] LABS: Hepatitis B Core Total AB Negative (Negative)
[2024-10-13 12:20] LABS: Hepatitis A Total Antibody Negative (Negative); Hepatitis B Surface Antibody Negative (Negative); Hepatitis B Surface Antigen Negative (Negative); Hepatitis C Antibody Negative (Negative)
== END | disposition home or self-care (01) ==
LOC: LAB 10:22
PROVIDERS: ATTEND Student in an Organized Health Care Education/Training Program
DX: E11.22 Type 2 diabetes mellitus with diabetic chronic kidney disease (principal); N18.9 Chronic kidney disease, unspecified; E11.69 Type 2 diabetes mellitus with other specified complication; I42.9 Cardiomyopathy, unspecified; D63.1 Anemia in chronic kidney disease; Z88.5 Allergy status to narcotic agent
CPT/HCPCS: 36415; 80053; 82607; 82746; 82784; 83010; 83521; 83540; 83550; 83615; 84155; 84165; 85045; 86334; 86703; 86704; 86706; 86708; 86803; 87340

== ENCOUNTER 2024-12-15 07:55 | Outpatient (CLI) | payer MEDICARE, BC ==
--- NOTE | 2024-12-16 12:19 | DVHSR ---
APPROVED REPORT EXAM: Two-dimensional and M-mode echocardiogram with Doppler and color Doppler. Surgery/Intervention Valve Replacement: Mechanical Type: AV Pacemaker: DIMENSIONS LVDd5.8 (3.8-5.7cm)LA (2D)6.0 (1.9-4.0cm)Aortic Root (2.0-3.7cm) LVDs4.6 (2.5-4.0cm)LA (MM) (1.9-4.0cm)Aortic Cusp Exc (1.5-2.0cm) EF (%) 35.0 (55-70%)Rt. Atrium6.2 (1.9-4.0cm)Asc. Aorta cm IVSd1.3 (0.7-1.1cm)RV (D)6.2 (1.8-2.4cm) PWd1.2 (0.7-1.1cm) Mitral Valve MitralMitral Stenosis E wave1.50m/sMV Mean GR.4mmHg A wavem/sMV Peak GR.10mmHg E/A ratio0.02D MVAcm2 DECEL [employer] 1/2 [id number] IVRTmsDop MVA3.11cm2 Aortic Valve Aortic ValveAortic Stenosis V10.85m/[place] Mean GR.16mmHg V22.74m/[place] Peak GR.30mmHg LVOT Diameter2.4 (1.8-2.4cm)Doppler AVA1.40cm2 Pulmonic Valve V21.26m/s Tricuspid Valve TR Velocity3.35m/s [id number] LEFT VENTRICLE The left ventricle is enlarged. The Ejection Fraction is below normal limits. The Ejection Fraction is 35-45%. RIGHT VENTRICLE The right ventricle is enlarged. There is a pacemaker lead in the right ventricle. ATRIA The left atrium is enlarged. The right atrium is enlarged. A pacemaker is seen in the right atrium. The interatrial septum is intact with no evidence for an atrial septal defect. MITRAL VALVE The mitral valve is normal in structure. Mitral annular calcification is moderate. Mitral regurgitation is moderate. PULMONIC VALVE The pulmonic valve is not well visualized. There is mild pulmonic valvular regurgitation. TRICUSPID VALVE The tricuspid valve is grossly normal. There is moderate to severe tricuspid regurgitation. Right ventricular systolic pressure is 50-60 mmHg. AORTIC VALVE No aortic regurgitation is present. The prosthetic aortic valve appears normal. GREAT VESSELS The aortic root is normal size. PERICARDIAL EFFUSION There is no pericardial effusion. Other Information Technically limited study due to body habitus. 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
== END 2024-12-15 17:00 | disposition home or self-care (01) ==
LOC: Rad HDHVI 07:55
PROVIDERS: ATTEND Internal Medicine Cardiovascular Disease
DX: I08.8 Other rheumatic multiple valve diseases (principal); I10 Essential (primary) hypertension; M79.669 Pain in unspecified lower leg; I25.89 Other forms of chronic ischemic heart disease
CPT/HCPCS: 93306; 93925